=== PATIENT | male | born 1960 | race Caucasian/White ===

== ENCOUNTER 2018-04-25 17:44 | Emergency (ER) | payer SELFPAY ==
--- NOTE | 2018-04-25 19:22 | ER Document Report ---
ED Medical Screen (RME) - General Chief Complaint: Abdominal Pain Stated Complaint: ABDOMINAL PAIN Time Seen by Provider: 04/25/18 19:19 Mode of Arrival: Wheelchair Information source: Patient Notes: Patient is a 57-year-old male who presents with chief complaint of abdominal pain. Patient reports the pain is located across his entire abdomen however is worse in the right lower quadrant. Patient has associated vomiting and has had no appetite all day. Exam: Tenderness to palpation to generalized abdomen, increased to right lower quadrant. Lung sounds clear to auscultation bilaterally. I have greeted and performed a rapid initial assessment of this patient. A comprehensive ED assessment and evaluation of the patient, analysis of test results and completion of the medical decision making process will be conducted by additional ED providers. Dictation of this chart was performed using voice recognition software; therefore, there may be some unintended grammatical errors. TRAVEL OUTSIDE OF THE [place] IN LAST 30 DAYS: No - Related Data Allergies/Adverse Reactions: No Known Allergies Allergy (Verified 04/25/18 19:09) Past Medical History - Social History Chew tobacco use (# tins/day): No Frequency of alcohol use: None Drug Abuse: None Pulmonary Medical History: Reports: Hx Asthma, Hx COPD Renal/ Medical History: Denies: Hx Peritoneal Dialysis Past Surgical History: Reports: Hx Cholecystectomy Physical Exam - Vital signs Vitals: Temp Pulse Resp BP Pulse Ox 98.3 F 87 16 112/71 95 04/25/18 18:23 04/25/18 18:23 04/25/18 18:23 04/25/18 18:23 04/25/18 18:23 Course - Vital Signs Vital signs: Temp Pulse Resp BP Pulse Ox 98.3 F 87 16 112/71 95 04/25/18 18:23 04/25/18 18:23 04/25/18 18:23 04/25/18 18:23 04/25/18 18:23 Doctor's Discharge - Discharge Referrals: JIA CAMERON MD [Primary Care Provider] - Follow up as needed
[2018-04-25 20:55] LABS: ABSOLUTE BASOPHILS # (AUTO) 0.1 10^3/uL (0.0-0.2); ABSOLUTE EOSINOPHILS # (AUTO) 0.1 10^3/uL (0.0-0.6); ABSOLUTE MONOCYTES (AUTO) 0.9 10^3/uL (0.1-1.4); ABSOLUTE NEUT (AUTO) 11.4 10^3/uL (1.7-8.2); BASOPHILS % (AUTO) 0.4 % (0-2); EOSINOPHILS % (AUTO) 0.4 % (0-6); HEMATOCRIT 42.8 % (37.9-51.0); HEMOGLOBIN 15.1 g/dL (13.5-17.0); LYMPHOCYTES % (AUTO) 14.1 % (13-45); MEAN CORPUSCULAR HEMOGLOBIN 30.4 pg (27.0-33.4); MEAN CORPUSCULAR HGB CONC 35.3 g/dL (32.0-36.0); MEAN CORPUSCULAR VOLUME 86 fl (80-97); MONOCYTES % (AUTO) 6.4 % (3-13); PLATELET COUNT 130 10^3/uL (150-450); RED BLOOD COUNT 4.97 10^6/uL (4.35-5.55); RED CELL DISTRIBUTION WIDTH 14.5 % (11.5-14.0); SEGMENTED NEUTROPHILS % (AUTO) 78.7 % (42-78); TOTAL CELLS COUNTED % (AUTO) 100 %; WHITE BLOOD COUNT 14.4 10^3/uL (4.0-10.5)
[2018-04-25 21:13] LABS: APPEARANCE,URINE CLEAR; BILIRUBIN,URINE NEGATIVE (NEGATIVE); COLOR,URINE AMBER; GLUCOSE, URINE NEGATIVE (NEGATIVE); KETONES,URINE NEGATIVE (NEGATIVE); LEUKOCYTE ESTERASE,URINE NEGATIVE (NEGATIVE); NITRITE,URINE NEGATIVE (NEGATIVE); PROTEIN,URINE NEGATIVE (NEGATIVE); URINE SPECIFIC GRAVITY 1.023
[2018-04-25 21:24] LABS: ALANINE AMINOTRANSFERASE 46 U/L (21-72); ALBUMIN 4.1 g/dL (3.5-5.0); ALKALINE PHOSPHATASE 76 U/L (38-126); ANION GAP 13 (5-19); ASPARTATE AMINO TRANSFERASE 53 U/L (17-59); BILIRUBIN,DIRECT 0.8 mg/dL (0.0-0.4); BLOOD UREA NITROGEN 13 mg/dL (7-20); CALCIUM 8.9 mg/dL (8.4-10.2); CARBON DIOXIDE 27 mmol/L (22-30); CHLORIDE 102 mmol/L (98-107); GLUCOSE 89 mg/dL (75-110); LIPASE 62.5 U/L (23-300); POTASSIUM 3.6 mmol/L (3.6-5.0); SODIUM 142.2 mmol/L (137-145); TOTAL PROTEIN 7.4 g/dL (6.3-8.2)
[2018-04-25] MEDS ORDERED: MORPHINE SULFATE 10 MG/ML INJ IV ONE (23:05)
[2018-04-25] MEDS ORDERED: NORMAL SALINE 1000 ML 1,000 ML IV ONE (23:05)
[2018-04-25] MEDS ORDERED: KETOROLAC TROMETHAMINE INJ/PF 30 MG/1 ML SDV IV ONE (23:05)
--- NOTE | 2018-04-25 23:12 | ER Document Report ---
ED GI/ - General Chief Complaint: Abdominal Pain Stated Complaint: ABDOMINAL PAIN Time Seen by Provider: 04/25/18 19:19 Mode of Arrival: Wheelchair Notes: The patient is a 57-year-old male, past medical history cholecystectomy, presents with 1 day of worsening lower abdominal pain, now worse in the right lower quadrant. He is also having nausea, vomiting and a small amount of watery diarrhea. He was at the urgent care center earlier today and sent to the ER for further evaluation and treatment. Patient denies fevers, urinary symptoms, constipation, flank pain, headache or rash. TRAVEL OUTSIDE OF THE [place] IN LAST 30 DAYS: No - Related Data Allergies/Adverse Reactions: No Known Allergies Allergy (Verified 04/25/18 19:09) Past Medical History - General Information source: Patient - Social History Smoking Status: Former Smoker Chew tobacco use (# tins/day): No Frequency of alcohol use: None Drug Abuse: None Family History: Reviewed & Not Pertinent Patient has suicidal ideation: No Patient has homicidal ideation: No Pulmonary Medical History: Reports: Hx Asthma, Hx COPD Renal/ Medical History: Denies: Hx Peritoneal Dialysis Past Surgical History: Reports: Hx Cholecystectomy Review of Systems - Review of Systems Notes: REVIEW OF SYSTEMS: CONSTITUTIONAL: -fevers, -chills EENT: -eye pain, -difficulty swallowing, -nasal congestion CARDIOVASCULAR: -chest pain, -syncope. RESPIRATORY: -cough, -SOB GASTROINTESTINAL: +RLQ abdominal pain, +nausea, +vomiting, +diarrhea GENITOURINARY: -dysuria, -hematuria MUSCULOSKELETAL: -back pain, -neck pain SKIN: -rash or skin lesions. HEMATOLOGIC: -easy bruising or bleeding. LYMPHATIC: -swollen, enlarged glands. NEUROLOGICAL: -altered mental status or loss of consciousness, -headache, - neurologic symptoms PSYCHIATRIC: -anxiety, -depression. ALL OTHER SYSTEMS REVIEWED AND NEGATIVE. Physical Exam - Vital signs Vitals: Temp Pulse Resp BP Pulse Ox 98.3 F 87 16 112/71 95 04/25/18 18:23 04/25/18 18:23 04/25/18 18:23 04/25/18 18:23 04/25/18 18:23 - Notes Notes: PHYSICAL EXAMINATION: GENERAL: Mildly uncomfortable. HEAD: Atraumatic, normocephalic. EYES: Pupils equal round and reactive to light, extraocular movements intact, sclera anicteric, conjunctiva are normal. ENT: nares patent, oropharynx clear without exudates. Moist mucous membranes. NECK: Normal range of motion, supple without lymphadenopathy LUNGS: Breath sounds clear to auscultation bilaterally and equal. No wheezes rales or rhonchi. HEART: Regular rate and rhythm without murmurs ABDOMEN: Soft, moderate RLQ tenderness, normoactive bowel sounds. -guarding, - rebound. No masses appreciated. EXTREMITIES: Normal range of motion, no pitting or edema. No cyanosis. NEUROLOGICAL: Cranial nerves grossly intact. Normal speech, normal gait. Normal sensory and motor exams. PSYCH: Normal mood, normal affect. SKIN: Warm, Dry, normal turgor, no rashes or lesions noted. Course - Re-evaluation Re-evalutation: Patient with worsening right lower quadrant abdominal pain and leukocytosis. CT abdomen and pelvis obtained to assess for appendicitis, but the appendix was normal. He does have signs of diarrheal illness and enterocolitis in the distal small bowel and early colon. No risk factors for Clostridium difficile. Instructed him to continue to stay hydrated and talked about symptomatic treatment. Also spoke to him about risks and benefits for antibiotics at this time. Using shared decision making, the risks of antibiotics causing more diarrhea outweigh any benefits. He will follow-up with his GI doctor. Given strict return precautions and he understands. - Vital Signs Vital signs: Temp Pulse Resp BP Pulse Ox 98.3 F 87 16 112/71 95 04/25/18 18:23 04/25/18 18:23 04/25/18 18:23 04/25/18 18:23 04/25/18 18:23 - Laboratory Result Diagrams: 04/25/18 20:20 04/25/18 20:20 Laboratory results interpreted by me: 04/25/18 04/25/18 04/25/18 20:20 20:20 20:20 WBC 14.4 H RDW 14.5 H Plt Count 130 L Seg Neutrophils % 78.7 H Absolute Neutrophils 11.4 H Total Bilirubin 7.0 H Direct Bilirubin 0.8 H Urine Urobilinogen 4.0 H - Diagnostic Test Radiology reviewed: Image reviewed, Reports reviewed Radiology results interpreted by me: CT A/P: Air-fluid levels within the colon and distal small bowel could be secondary to a diarrheal state. Linear and bandlike opacities of the left lower lung may represent scar versus subsegmental atelectasis. Discharge - Discharge Clinical Impression: Colitis Abdominal pain Qualifiers: Abdominal location: right lower quadrant Qualified Code(s): R10.31 - Right lower quadrant pain Condition: Stable Disposition: HOME, SELF-CARE Additional Instructions: ABDOMINAL PAIN: There are many causes of abdominal pain. Pain can mean a serious problem requiring surgery (such as appendicitis). It can also be an innocent problem that goes away on its own (such as a viral infection). Often, time must pass to determine the cause of pain. The physician does not feel that hospitalization is necessary, at present. Things may change within the next 24 hours. Call the doctor or come back for re- examination if any problems occur, such as: (1) Pain that becomes more severe, steady, or becomes concentrated in one specific area. Also, pain that is more severe with movement or coughing. (2) Vomiting that persists or becomes more frequent. (3) Blood in the vomitus, urine, or bowel movements. Blood in the stool may have a tarry or black appearance. (4) Shaking chills or fever greater than 100 degrees F. (5) The abdomen becomes more distended or swollen. (6) Bowel movements cease. (7) Failure to improve as expected. COLITIS, NONSPECIFIC: Colitis is an inflammatory disease of the large intestine which affects the lining of the bowel. The cause is uncertain, though it is often caused by an infection. In some cases, the symptoms resolve and can return again in the future. Colitis is characterized by abdominal pain, often nausea and vomiting, and either diarrhea or difficulty with bowel movements. Sometimes blood will be present in the bowel movements. Fever is often present as well. Milder cases of colitis can be managed as an outpatient with medications for nausea and vomiting and pain, oral fluid therapy, and perhaps antibiotics, if a bacterial origin is suspected. Antidiarrhea medicine should usually be avoided in colitis. If you have increasing abdominal pain, repeated vomiting, fever, rectal bleeding, or worsening diarrhea, you should return for re-evaluation. TORADOL INJECTION: You have been given an injection of ketorolac tromethamine (Toradol). This is an excellent, safe drug for pain control. It also has potent antiinflammatory action. You should have significant pain relief within about one hour. Toradol is not addicting and is non-sedating. It does not interfere with driving or work. Call or return if you develop itching, hives, shortness of breath, or rash. PAIN MEDICATION INJECTION: You have received an injection of a pain medication. You should experience significant pain relief within 45 minutes. This drug is a narcotic - - it will impair your judgement, slow your reaction time and make you sleepy ( as well as relieve your pain). Narcotics also can cause nausea. You should not drive, work with machinery, or perform any task requiring mental alertness until all effects of the medication are gone -- six to eight hours. Do not take any alcohol, or sedatives, and do not take any other medication without checking with your physician. ANTINAUSEA MEDICATION: You have been given a medication to suppress nausea and vomiting. This type of medication can be given as a shot, pill, or suppository. It will usually last for many hours. Pills and shots usually last six to eight hours, suppositories last about 12 hours. For the typical illness, only one or two doses of the medication may be necessary. Mild lightheadedness may occur. This type of medicine can cause drowsiness. Do not drive or operate dangerous machinery while under its influence. Do not mix with alcohol. See your doctor at once if you have muscle spasms or tightness, or uncontrollable motions (particularly of the neck, mouth, or jaw). Persistent vomiting or severe lightheadedness should also be evaluated by the physician. FOLLOW-UP CARE: If you have been referred to a physician for follow-up care, call the physician s office for an appointment as you were instructed or within the next two days. If you experience worsening or a significant change in your symptoms, notify the physician immediately or return to the Emergency Department at any time for re-evaluation. Prescriptions: Dicyclomine HCl [Bentyl 10 mg Capsule] 1 cap PO TID #14 cap Ondansetron HCl [Zofran 4 mg Tablet] 1 - 2 tab PO Q4H PRN #10 tablet PRN Reason: Referrals: JIA CAMERON MD [Primary Care Provider] - Follow up as needed FARA MARROQUIN MD [ACTIVE STAFF] - Follow up as needed
--- NOTE | 2018-04-26 00:30 | RADIOLOGY REPORT (SQ) ---
EXAM DESCRIPTION: CT abdomen and pelvis with intravenous contrast, April 25, 2018 at 11:57 PM CLINICAL HISTORY: RLQ tenderness COMPARISON: January 09, 2016 TECHNIQUE: Contiguous axial images of the abdomen and pelvis were obtained after the administration of intravenous contrast followed by reconstruction images.This exam was performed according to our departmental dose-optimization program, which includes automated exposure control, adjustment of the mA and/or kV according to patient size and/or use of iterative reconstruction technique. FINDINGS: Linear and bandlike opacities within the lungs may represent scar versus subsegmental atelectasis. There is a hiatal hernia. The liver is of decreased attenuation compatible with fatty infiltration. Patient is status post cholecystectomy. Air-fluid levels within the colon and distal small bowel could be secondary to a diarrheal state. The liver, spleen, pancreas and kidneys are otherwise within normal limits. There is no hydronephrosis or renal stones. Adrenal glands are within normal limits. Aorta is of normal caliber and tapering. There is no free fluid in the abdomen or pelvis. There is no bowel obstruction. There is no stranding of the mesenteric fat to suggest an inflammatory response. The appendix is within normal limits. There is no pericecal inflammation. IMPRESSION: Air-fluid levels within the colon and distal small bowel could be secondary to a diarrheal state. Linear and bandlike opacities of the left lower lung may represent scar versus subsegmental atelectasis.
[2018-04-26] MEDS ORDERED: ONDANSETRON ODT 4 MG TAB (6 TAB/ER DISP) PO PRN (00:56)
[2018-04-26 01:06] VITALS: BP 103/56
== END 2018-04-26 01:23 | disposition home or self-care (01) ==
LOC: ER 17:44
DX: K52.9 Noninfective gastroenteritis and colitis, unspecified (principal); R10.31 Right lower quadrant pain; D72.829 Elevated white blood cell count, unspecified; R11.2 Nausea with vomiting, unspecified; J44.9 Chronic obstructive pulmonary disease, unspecified; Z87.891 Personal history of nicotine dependence
CPT/HCPCS: 99284; 96361; 96374; 96375; 36415; 83690; 85025; 80053; 81001; 74177; J1885; J2270; J7030

== ENCOUNTER 2018-05-17 21:06 | Emergency (ER) | payer OTHER ==
[~2018-05-17 21:06] MED LIST: ENOXAPARIN SODIUM INJ 80 MG/0.8 ML DISP.SYRIN SUBCUT ONE
[2018-05-17] MEDS ORDERED: ENOXAPARIN SODIUM INJ 80 MG/0.8 ML DISP.SYRIN SUBCUT SCH (23:45)
[2018-05-17] MEDS ORDERED: HYDROCODONE/ACETAMINOPHEN 5-325 MG (6 TAB/ER DISP) PO PRN (23:51)
--- NOTE | 2018-05-17 23:51 | ER Document Report ---
ED General - General Chief Complaint: Knee Pain Stated Complaint: KNEE/LEG PAIN Time Seen by Provider: 05/17/18 22:56 Mode of Arrival: Ambulatory Information source: Patient Notes: Patient is a 57-year-old male who presents with posterior left leg pain. Patient reports this is been going on for approximately 3 weeks. Patient reports he was seen at orthopedics approximately 2 weeks ago, was diagnosed and treated for gout but patient reports the medications he was put on did not change his symptoms at all. Patient reports the pain is located on the back of his leg from his calf to the back of his knee. Patient reports there is associated swelling and erythema. Patient denies any fevers, nausea or vomiting. Patient reporting that he has a history of having DVTs in the past and has had vein stripping done in this leg. Patient is not currently on any anticoagulants. TRAVEL OUTSIDE OF THE [place] IN LAST 30 DAYS: No - Related Data Allergies/Adverse Reactions: No Known Allergies Allergy (Verified 04/25/18 19:09) Past Medical History - Social History Smoking Status: Former Smoker Family History: Reviewed & Not Pertinent Patient has suicidal ideation: No Patient has homicidal ideation: No Pulmonary Medical History: Reports: Hx Asthma, Hx COPD Renal/ Medical History: Denies: Hx Peritoneal Dialysis Past Surgical History: Reports: Hx Cholecystectomy Physical Exam - Vital signs Vitals: Temp Pulse Resp BP Pulse Ox 98 F 52 L 14 112/68 97 05/18/18 01:00 05/18/18 01:00 05/18/18 01:00 05/18/18 01:00 05/18/18 01:00 - Notes Notes: PHYSICAL EXAMINATION: GENERAL: Well-appearing, well-nourished and in no acute distress. HEAD: Atraumatic, normocephalic. EYES: Pupils equal round and reactive to light, extraocular movements intact, sclera anicteric, conjunctiva are normal. ENT: Nares patent, oropharynx clear without exudates. Moist mucous membranes. NECK: Normal range of motion, supple without lymphadenopathy LUNGS: Breath sounds clear to auscultation bilaterally and equal. No wheezes rales or rhonchi. HEART: Regular rate and rhythm without murmurs ABDOMEN: Soft, nontender, nondistended abdomen. No guarding, no rebound. No masses appreciated. Musculoskeletal: Normal range of motion, no pitting or edema. No cyanosis. Swelling and erythema noted to left lower extremity. Dorsalis pedis pulses are present and equal bilaterally. NEUROLOGICAL: Cranial nerves grossly intact. Normal speech, normal gait. Normal sensory, motor exams PSYCH: Normal mood, normal affect. SKIN: Warm, Dry, normal turgor, no rashes or lesions noted. Course - Re-evaluation Re-evalutation: Patient's left lower extremity with swelling and erythema, this is been ongoing for 3 weeks. Patient does have a history of DVT. Patient's description of his pain is to the posterior leg from his calf to his popliteal area. Patient describes this as a achy pain. There is reasonable suspicion that this could be a DVT and therefore patient will be sent for an outpatient venous Doppler in the morning as we do not have venous Doppler available at this hour. Patient will be treated with Lovenox 1 mg/kg subcutaneously. Patient understands and is agreeable to this plan of care. Patient also understands ED return precautions as outlined in his discharge papers. - Vital Signs Vital signs: Temp Pulse Resp BP Pulse Ox 98 F 52 L 14 112/68 97 05/18/18 01:00 05/18/18 01:00 05/18/18 01:00 05/18/18 01:00 05/18/18 01:00 Discharge - Discharge Clinical Impression: Leg pain, anterior Qualifiers: Laterality: left Qualified Code(s): M79.605 - Pain in left leg Condition: Stable Disposition: HOME, SELF-CARE Additional Instructions: DVT Workup Pending Deep venous thrombosis (DVT) is clots within the large deep veins in the leg. It can be serious. DVT is more likely to affect people who smoke, take estrogen, have had recent surgery, have been immobile, have had previous DVT, or who have serious underlying health conditions. You will need a study of the veins of the legs. It's important that you follow through. DVT clots can damage the valves in the veins, leading to chronic pain and swelling. If a clot breaks loose and floats upstream, it can stick in the lungs. A clot in the lungs, called pulmonary embolism, can be life- threatening. Keep your legs elevated. A heating pad, 20 minutes every two hours, can help with leg pain. For now, keep walking to a minimum. Don't do any physical work, lifting, or exercise. If the doctor has recommended medication for you, it 's important that you take it. Call the doctor or return if you develop increasing leg pain and swelling, leg discoloration, fever, chest pain, shortness of breath, or if you cough up blood. You have been given a first dose of Lovenox here in the emergency department tonight. Please proceed to outpatient radiology tomorrow, call for an appointment to have your venous Doppler study done to evaluate for a deep vein thrombosis/blood clot in your left lower extremity. Take the pain medications as directed, do not drive while taking them as they are a narcotic. Please return to the emergency department immediately if you develop worsening pain, chest pain, shortness of breath or any other symptom that is concerning to you. Forms: Follow-Up Radiology Testing Referrals: [facility] [Provider Group] - Follow up as needed
[2018-05-18] MEDS ORDERED: POTASSIUM CHLORIDE 20 MEQ/15 ML UDCUP PEG ONE (00:15)
[2018-05-18] MEDS ORDERED: ENOXAPARIN SODIUM INJ 80 MG/0.8 ML DISP.SYRIN SUBCUT ONE (00:23)
[2018-05-18] MEDS ORDERED: POTASSIUM CHLORIDE 20 MEQ/50 ML RTU IV SCH (01:00)
[2018-05-18 01:02] VITALS: BP 112/68
== END 2018-05-18 01:00 | disposition home or self-care (01) ==
LOC: ER 21:06
DX: M79.662 Pain in left lower leg (principal); M25.562 Pain in left knee; M79.89 Other specified soft tissue disorders; L53.9 Erythematous condition, unspecified; J44.9 Chronic obstructive pulmonary disease, unspecified; Z86.718 Personal history of other venous thrombosis and embolism; Z87.891 Personal history of nicotine dependence
CPT/HCPCS: 99283; 96372; J1650

== ENCOUNTER → 2018-05-18 | Outpatient (CLI) | payer OTHER ==
--- NOTE | 2018-05-18 15:49 | RADIOLOGY REPORT (SQ) ---
EXAM DESCRIPTION: VENOUS UNILATERAL LOWER COMPLETED DATE/TIME: 05/18/2018 2:38 pm REASON FOR STUDY: LLE PAIN COMPARISON: None. TECHNIQUE: Dynamic and static luke scale and color images acquired of the left leg venous system. Se lected spectral images acquired with additional compression and augmentation maneuvers. The contralat eral common femoral vein and saphenofemoral junction were also imaged. Images stored on PACS. LIMITATIONS: None. FINDINGS: COMMON FEMORAL: Normal phasicity, compression and augmentation. No visualized echogenic ma terial on luke scale. No defects on color images. FEMORAL: Normal compression and augmentation. No visualized echogenic material on luke scale. No defe cts on color images. POPLITEAL: Normal compression, augmentation. No visualized echogenic material on luke scale. No defec ts on color images. CALF VESSELS: Normal compression, augmentation. No visualized echogenic material on luke scale. No de fects on color images. GSV and SSV: Normal compression, augmentation. No visualized echogenic material on luke scale. No def ects on color images. ANY DEEP VENOUS INSUFFICIENCY: Not evaluated. ANY EVIDENCE OF POPLITEAL CYST: No. OTHER: No other significant finding. CONTRALATERAL COMMON FEMORAL VEIN AND SAPHENOFEMORAL JUNCTION: Normal phasicity, compression and augmentation. No visualized echogenic material on luke scale. No de fects on color images. IMPRESSION: NO EVIDENCE DVT OR SVT IN THE LEFT LEG. TECHNICAL DOCUMENTATION: JOB ID: [id number] [employer]- All Rights Reserved Reading location - IP/workstation name: [email or web address]
== END ==
LOC: RAD 12:36
PROVIDERS: ATTEND Student in an Organized Health Care Education/Training Program
DX: M79.662 Pain in left lower leg (principal)
CPT/HCPCS: 93971

== ENCOUNTER 2018-05-20 04:08 | Inpatient (IN) | payer OTHER ==
[2018-05-20] MEDS ORDERED: ACETAMINOPHEN 325 MG TABLET PO ONE (04:34)
[2018-05-20] MEDS ORDERED: NORMAL SALINE 1000 ML 1,000 ML IV ONE (04:50)
--- NOTE | 2018-05-20 04:53 | ER Document Report ---
ED General - General Chief Complaint: Productive Cough Stated Complaint: FEVER Time Seen by Provider: 05/20/18 04:25 Notes: Patient is a 57-year-old male who comes in with a fever. Patient began having shaking chills last night. He has had a slight cough. Was seen over the last 2 weeks once for abdominal pain and also for left leg and knee pain. Patient had a recent venous Doppler that did not show any evidence for DVT. He states that he was vomiting but he has not really had abdominal pain today. Denies any dysuria. Patient has a history of COPD. Denies any coronary artery disease or chest pain. No recent trauma. TRAVEL OUTSIDE OF THE [place] IN LAST 30 DAYS: No - HPI Onset: This evening Onset/Duration: Sudden Quality of pain: No pain Associated symptoms: Fever Exacerbated by: Denies Relieved by: Denies Recently seen / treated by doctor: Yes - Related Data Allergies/Adverse Reactions: No Known Allergies Allergy (Verified 04/25/18 19:09) Past Medical History - General Information source: Patient, Relative - Social History Smoking Status: Former Smoker Drug Abuse: None Lives with: Spouse/Significant other Family History: Reviewed & Not Pertinent Pulmonary Medical History: Reports: Hx Asthma, Hx COPD Renal/ Medical History: Denies: Hx Peritoneal Dialysis Past Surgical History: Reports: Hx Cholecystectomy Review of Systems - Review of Systems Constitutional: Fever EENT: No symptoms reported Cardiovascular: No symptoms reported Respiratory: Cough Gastrointestinal: Vomiting Genitourinary: No symptoms reported Male Genitourinary: No symptoms reported Musculoskeletal: Other - leg pain Skin: No symptoms reported Hematologic/Lymphatic: No symptoms reported Neurological/Psychological: No symptoms reported Physical Exam - Vital signs Vitals: Resp Pulse Ox 19 96 05/20/18 04:37 05/20/18 04:37 Interpretation: Tachycardic, Tachypneic, Febrile - General General appearance: Alert In distress: Moderate - Respiratory Respiratory status: Tachypnea Breath sounds: Decreased air movement - bases - Cardiovascular Rhythm: Regular, Tachycardia - Abdominal Inspection: Normal - Back Back: Normal - Extremities General upper extremity: Normal inspection, Normal strength General lower extremity: Normal inspection, Tender - L medial lower leg, excellent pulses t/o, Normal color, Normal ROM, Normal strength, Normal temperature. No: Edema - Neurological Neuro grossly intact: Yes Cognition: Normal Orientation: AAOx4 Amado Coma Scale Eye Opening: Spontaneous [place] Coma Scale Verbal: Oriented Speech: Normal - Psychological Associated symptoms: Normal affect, Normal mood - Skin Skin Temperature: Hot Skin Moisture: Dry Skin Color: Normal Course - Re-evaluation Re-evalutation: 05/20/18 06:02 Patient is a 57-year-old male who comes in with shaking chills, fever, tachycardia, and cough. Patient has a oxygen saturation of 92% at rest which drops when he gets up to try to walk around. He is improved since his fever is down and he has been fluid resuscitated. Chest x-ray showing pneumonia. Given the patient's symptoms and presentation will be kept for admission. Patient is agreeable to this. He is still complaining of left leg pain. Of note, recent venous Dopplers were negative. He has excellent pulses and no evidence for cellulitis. He has full range of motion and strength is intact throughout. - Vital Signs Vital signs: Temp Pulse Resp BP Pulse Ox 38 H 126/74 H 93 05/20/18 05:00 05/20/18 04:38 05/20/18 05:00 - Laboratory Result Diagrams: 05/20/18 04:36 05/20/18 04:36 Laboratory results interpreted by me: 05/20/18 05/20/18 05/20/18 04:36 04:36 04:36 RDW 14.1 H Plt Count 111 L Seg Neutrophils % 86.2 H Lymphocytes % 7.8 L Potassium 3.4 L Glucose 113 H Total Bilirubin 4.3 H Direct Bilirubin 0.7 H Urine Blood SMALL H Urine Urobilinogen 4.0 H Critical Care Note - Critical Care Note Total time excluding time spent on procedures (mins): 45 - Evaluation and management of sepsis, hypoxia, diagnoses or pneumonia, coordination of admission , counseling of patient family Discharge - Discharge Clinical Impression: SIRS (systemic inflammatory response syndrome), Leg pain, left Pneumonia Qualifiers: Pneumonia type: due to unspecified organism Laterality: left Lung location: lower lobe of lung Qualified Code(s): J18.1 - Lobar pneumonia, unspecified organism Condition: Stable Disposition: ADMITTED INPATIENT [facility] Admitted: Telemetry Scribe Attestation: 05/20/18 06:04 I personally performed the services described in the documentation, reviewed and edited the documentation which was dictated to the scribe in my presence, and it accurately records my words and actions.
[2018-05-20 05:07] LABS: ABSOLUTE EOSINOPHILS # (AUTO) 0.1 10^3/uL (0.0-0.6); ABSOLUTE LYMPHOCYTES (AUTO) 0.6 10^3/uL (0.5-4.7); ABSOLUTE MONOCYTES (AUTO) 0.4 10^3/uL (0.1-1.4); ABSOLUTE NEUT (AUTO) 6.5 10^3/uL (1.7-8.2); BASOPHILS % (AUTO) 0.2 % (0-2); HEMATOCRIT 42.7 % (37.9-51.0); HEMOGLOBIN 15.2 g/dL (13.5-17.0); LYMPHOCYTES % (AUTO) 7.8 % (13-45); MEAN CORPUSCULAR HEMOGLOBIN 30.4 pg (27.0-33.4); MEAN CORPUSCULAR HGB CONC 35.6 g/dL (32.0-36.0); MEAN CORPUSCULAR VOLUME 86 fl (80-97); MONOCYTES % (AUTO) 4.8 % (3-13); PLATELET COUNT 111 10^3/uL (150-450); RED CELL DISTRIBUTION WIDTH 14.1 % (11.5-14.0); SEGMENTED NEUTROPHILS % (AUTO) 86.2 % (42-78); TOTAL CELLS COUNTED % (AUTO) 100 %; WHITE BLOOD COUNT 7.5 10^3/uL (4.0-10.5)
[2018-05-20 05:08] LABS: VENOUS BLOOD BASE EXCESS -0.8 mmol/L; VENOUS BLOOD PCO2 45.6 mmHg (35-63); VENOUS BLOOD PH 7.36 (7.30-7.42)
[2018-05-20 05:10] LABS: INTERNATIONAL RATION (INR) 0.99; PROTHROMBIN TIME 13.6 SEC (11.4-15.4)
--- NOTE | 2018-05-20 05:16 | RADIOLOGY REPORT (SQ) ---
EXAM DESCRIPTION: XR CHEST 1 VIEW COMPLETED DATE/TME: 05/20/2018 04:24 CLINICAL HISTORY: 57 years Male, fever COMPARISON: CT ABD/PELVIS COMBO 01/09/2016 NUMBER OF VIEWS/TECHNIQUE: 1/AP FINDINGS: Increased lung volume, small lingular patchy opacity, normal cardiac silhouette, and intact bony thorax. IMPRESSION: Small lingular pneumonia/atelectasis.
[2018-05-20 05:25] LABS: APPEARANCE,URINE CLEAR; BILIRUBIN,URINE NEGATIVE (NEGATIVE); COLOR,URINE YELLOW; GLUCOSE, URINE NEGATIVE (NEGATIVE); KETONES,URINE NEGATIVE (NEGATIVE); LEUKOCYTE ESTERASE,URINE NEGATIVE (NEGATIVE); NITRITE,URINE NEGATIVE (NEGATIVE); PROTEIN,URINE NEGATIVE (NEGATIVE); URINE SPECIFIC GRAVITY 1.017
[2018-05-20 05:30] LABS: ALANINE AMINOTRANSFERASE 36 U/L (21-72); ALBUMIN 3.8 g/dL (3.5-5.0); ALKALINE PHOSPHATASE 76 U/L (38-126); ANION GAP 13 (5-19); ASPARTATE AMINO TRANSFERASE 35 U/L (17-59); BILIRUBIN,DIRECT 0.7 mg/dL (0.0-0.4); BILIRUBIN,TOTAL 4.3 mg/dL (0.2-1.3); BLOOD UREA NITROGEN 8 mg/dL (7-20); CALCIUM 8.9 mg/dL (8.4-10.2); CARBON DIOXIDE 27 mmol/L (22-30); CHLORIDE 104 mmol/L (98-107); GLUCOSE 113 mg/dL (75-110); POTASSIUM 3.4 mmol/L (3.6-5.0)
[2018-05-20] MEDS ORDERED: CEFTRIAXONE 1 GM/D5W RTU 1 GM/50 ML RTUPB IV ONE (05:41)
[2018-05-20] MEDS ORDERED: CEFTRIAXONE INJ 1000 MG VIAL ONE (05:49)
[2018-05-20] MEDS ORDERED: AZITHROMYCIN INJ 500 MG VIAL IV ONE (06:00)
[2018-05-20] MEDS ORDERED: IPRATROPIUM/ALBUTEROL 0.5-2.5 MG/3 ML AMPUL NEB PRN (06:03)
[2018-05-20] MEDS ORDERED: LACTULOSE SYRUP 20 GM/30 ML UDCUP PO ONE (06:03)
[2018-05-20] MEDS ORDERED: ACETAMINOPHEN 325 MG TABLET PO PRN (06:03)
[2018-05-20] MEDS ORDERED: HYDRALAZINE HCL INJ/PF 20 MG/1 ML SDV IV PRN (06:03)
[2018-05-20] MEDS ORDERED: GUAIFENESIN SYRP 200 MG/10 ML UDC PO PRN (06:03)
--- NOTE | 2018-05-20 06:29 | PDOC H&P ---
History of Present Illness Admission Date/PCP: 05/20/18 06:03 JASON GUERIN DO Patient complains of: Shortness of breath and fever History of Present Illness: ISHAN BAILEY is a 57 year old male with a past medical history of Gilbert's, COPD and constipation predominant irritable bowel syndrome who presents with 24 hours of fever, shortness of breath and nonproductive cough. Denying rhinorrhea , sore throat, infectious contacts but admits uncontrolled GERD. In the emergency room he has an extensive workup and found to have fever of 102.7, infiltrate of the left lower lobe and constipation. He started on empiric antibiotics and for the hospitalist for admission. Patient denies recent antibiotic use. Past Medical History Pulmonary Medical History: Reports: Asthma, Chronic Obstructive Pulmonary Disease (COPD) GI Medical History: Reports: Other - Gilbert's Psychiatric Medical History: Denies: Alcohol Dependency, Tobacco Dependency Past Surgical History Past Surgical History: Reports: Cholecystectomy Social History Information Source: Patient Lives with: Spouse/Significant other Smoking Status: Former Smoker Frequency of Alcohol Use: None Drugs: None - Advance Directive Resuscitation Status: Full Code Family History Family History: Other - Lymphoma, breast cancer and hepatic cirrhosis Parental Family History Reviewed: Yes Children Family History Reviewed: Yes Sibling(s) Family History Reviewed.: Yes Medication/Allergy Home Medications: Amox Tr/Potassium Clavulanate [Augmentin 875-125 mg Tablet] 1 tab PO BID #20 tablet 05/16/14 Ondansetron [Zofran Odt 4 mg Tablet] 1 - 2 tab PO Q4HP PRN #10 tab.rapdis Dicyclomine HCl [Bentyl 10 mg Capsule] 1 cap PO TID #14 cap 04/26/18 Ondansetron HCl [Zofran 4 mg Tablet] 1 - 2 tab PO Q4H PRN #10 tablet 04/26/18 Allergies/Adverse Reactions: No Known Allergies Allergy (Verified 04/25/18 19:09) Review of Systems Constitutional: ABSENT: chills, fever(s), headache(s), weight gain, weight loss Eyes: ABSENT: visual disturbances Ears: ABSENT: hearing changes Cardiovascular: ABSENT: chest pain, dyspnea on exertion, edema, orthropnea, palpitations Respiratory: ABSENT: cough, hemoptysis Gastrointestinal: ABSENT: abdominal pain, constipation, diarrhea, hematemesis, hematochezia, nausea, vomiting Genitourinary: ABSENT: dysuria, hematuria Musculoskeletal: ABSENT: joint swelling Integumentary: ABSENT: rash, wounds Neurological: ABSENT: abnormal gait, abnormal speech, confusion, dizziness, focal weakness, syncope Psychiatric: ABSENT: anxiety, depression, homidical ideation, suicidal ideation Endocrine: ABSENT: cold intolerance, heat intolerance, polydipsia, polyuria Hematologic/Lymphatic: ABSENT: easy bleeding, easy bruising Physical Exam Vital Signs: Temp Pulse Resp BP Pulse Ox 38 H 126/74 H 93 05/20/18 05:00 05/20/18 04:38 05/20/18 05:00 Intake & Output 05/18/18 05/19/18 05/20/18 11:59 11:59 11:59 Intake Total 1000 Balance 1000 General appearance: PRESENT: cooperative, disheveled, mild distress. ABSENT: no acute distress, hard of hearing Head exam: PRESENT: atraumatic, normocephalic Eye exam: PRESENT: conjunctiva pink, EOMI, PERRLA. ABSENT: scleral icterus Ear exam: PRESENT: normal external ear exam Mouth exam: PRESENT: moist, tongue midline Neck exam: ABSENT: carotid bruit, JVD, lymphadenopathy, thyromegaly Respiratory exam: PRESENT: accessory muscle use, crackles, prolonged expiratory phas, rales, symmetrical, tachypnea. ABSENT: chest wall tenderness, clear to auscultation francisca Cardiovascular exam: PRESENT: tachycardia. ABSENT: diastolic murmur, rubs, systolic murmur Pulses: PRESENT: normal dorsalis pedis pul Vascular exam: PRESENT: normal capillary refill GI/Abdominal exam: PRESENT: distended, hypoactive bowel sounds, soft, tenderness. ABSENT: firm, guarding, mass Rectal exam: PRESENT: deferred Extremities exam: PRESENT: full ROM. ABSENT: calf tenderness, clubbing, pedal edema Neurological exam: PRESENT: alert, awake, oriented to person, oriented to place , oriented to time, oriented to situation, CN II-XII grossly intact. ABSENT: motor sensory deficit Psychiatric exam: PRESENT: anxious Skin exam: PRESENT: dry, intact, warm. ABSENT: cyanosis, rash Results Impressions: Chest X-Ray 05/20/18 04:24 IMPRESSION: Small lingular pneumonia/atelectasis. Assessment & Plan - Diagnosis (1) Pneumonia Qualifiers: Pneumonia type: due to unspecified organism Laterality: left Lung location: lower lobe of lung Qualified Code(s): J18.1 - Lobar pneumonia, unspecified organism Is this a current diagnosis for this admission?: Yes Plan: Pneumonia care set, incentive spirometry follow-up CBC and blood culture (2) COPD exacerbation Is this a current diagnosis for this admission?: Yes Plan: Flutter valve, albuterol and Atrovent (3) [place] disease Is this a current diagnosis for this admission?: Yes Plan: Benign elevation of bilirubin noted (4) Irritable bowel syndrome with constipation Is this a current diagnosis for this admission?: Yes Plan: Trial lactulose (5) SIRS (systemic inflammatory response syndrome) Is this a current diagnosis for this admission?: Yes Plan: Secondary to #1, supportive care IV fluid challenge, follow-up CBC and blood culture - Time Time Spent: 50 to 70 Minutes - Inpatient Certification Medical Necessity: Need Close Monitoring Due to Risk of Patient Decompensation
[2018-05-20] MEDS ORDERED: FLUTICASONE NASAL SPRAY 50 MCG/SPRY 120 SPRAY/16 GM NASL ONE (06:30)
[2018-05-20] MEDS: KETOROLAC TROMETHAMINE INJ/PF 30 MG/1 ML SDV IV PRN ×3 (06:37→22:10)
[2018-05-20] MEDS: NORMAL SALINE 1000 ML 1,000 ML IV PRN ×3 (06:39→21:16)
[2018-05-20] MEDS: POTASSI CL 20 MEQ/50 ML RIDER 20 MEQ/50 ML RTUPB IV SCH ×2 (06:42→08:50)
--- NOTE | 2018-05-20 06:42 | RADIOLOGY REPORT (SQ) ---
EXAM DESCRIPTION: CT ABDOMEN PELVIS WITH IV CONTRAST, CT CHEST ANGIOGRAPHY WITHOUT THEN WITH IV CONTRAST COMPLETED DATE/TME: 05/20/2018 05:05 (accession [id number]), 05/20/2018 05:04 (accession [id number]) CLINICAL HISTORY: 57 years Male, abd pain, vomiting, fever Comparison: CT ABD/PELVIS 01/09/2016 Technique: IV contrast. Coronal and sagittal reformat. 3d reconstruction. This exam was performed according to our departmental dose-optimization program, which includes automated exposure control, adjustment of the mA and/or kV according to patient size and/or use of iterative reconstruction technique. [facility]: Dose Right [facility]: CareDose [facility]: Dose Right [facility]: Teradose 4D [facility]: [employer] LIMITATIONS: Quality of pulmonary arteriogram: Suboptimal. Findings: Innumerable subsolid pulmonary edema nodules include a 0.7 cm lesion on image 63 of series 3 and 0.6 cm lesion of the right upper lobe, image 35 of series 3. Differential etiologies include infectious/atypical pneumonitis, inflammatory, and metastatic/neoplastic processes. Recommend CR/CT surveillance including at 7-12 weeks following initiation of clinically warranted therapy. Splenomegaly index of 1281. 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 No evidence of pulmonary embolus. No right ventricular strain. CTA of the aorta, great vessels of the mediastinum, mesenteric/renal arteries appears unremarkable. Moderate hiatal hernia cholecystectomy clips, normal appendix. Inferior neck, axillae, mediastinum, lungs, airway, heart, liver, pancreas, spleen, adrenals, renal system, gastrointestinal tract, pelvic organs, lymphatics, and musculoskeleton appear otherwise unremarkable. Impression: 1. Innumerable subsolid pulmonary edema nodules include a 0.7 cm lesion on image 63 of series 3 and 0.6 cm lesion of the right upper lobe, image 35 of series 3. Differential etiologies include infectious/atypical pneumonitis, inflammatory, and metastatic/neoplastic processes. Recommend CR/CT surveillance including at 7-12 weeks following initiation of clinically warranted therapy. 2. Splenomegaly index of 1281. 3. 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
--- NOTE | 2018-05-20 06:42 | RADIOLOGY REPORT (SQ) ---
EXAM DESCRIPTION: CT ABDOMEN PELVIS WITH IV CONTRAST, CT CHEST ANGIOGRAPHY WITHOUT THEN WITH IV CONTRAST COMPLETED DATE/TME: 05/20/2018 05:05 (accession [id number]), 05/20/2018 05:04 (accession [id number]) CLINICAL HISTORY: 57 years Male, abd pain, vomiting, fever Comparison: CT ABD/PELVIS 01/09/2016 Technique: IV contrast. Coronal and sagittal reformat. 3d reconstruction. This exam was performed according to our departmental dose-optimization program, which includes automated exposure control, adjustment of the mA and/or kV according to patient size and/or use of iterative reconstruction technique. [facility]: Dose Right [facility]: CareDose [facility]: Dose Right [facility]: Teradose 4D [facility]: [employer] LIMITATIONS: Quality of pulmonary arteriogram: Suboptimal. Findings: Innumerable subsolid pulmonary edema nodules include a 0.7 cm lesion on image 63 of series 3 and 0.6 cm lesion of the right upper lobe, image 35 of series 3. Differential etiologies include infectious/atypical pneumonitis, inflammatory, and metastatic/neoplastic processes. Recommend CR/CT surveillance including at 7-12 weeks following initiation of clinically warranted therapy. Splenomegaly index of 1281. 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 No evidence of pulmonary embolus. No right ventricular strain. CTA of the aorta, great vessels of the mediastinum, mesenteric/renal arteries appears unremarkable. Moderate hiatal hernia cholecystectomy clips, normal appendix. Inferior neck, axillae, mediastinum, lungs, airway, heart, liver, pancreas, spleen, adrenals, renal system, gastrointestinal tract, pelvic organs, lymphatics, and musculoskeleton appear otherwise unremarkable. Impression: 1. Innumerable subsolid pulmonary edema nodules include a 0.7 cm lesion on image 63 of series 3 and 0.6 cm lesion of the right upper lobe, image 35 of series 3. Differential etiologies include infectious/atypical pneumonitis, inflammatory, and metastatic/neoplastic processes. Recommend CR/CT surveillance including at 7-12 weeks following initiation of clinically warranted therapy. 2. Splenomegaly index of 1281. 3. 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
--- NOTE | 2018-05-20 07:18 | EKG REPORT ---
SEVERITY:- BORDERLINE ECG - SINUS TACHYCARDIA PROBABLE LEFT ATRIAL ABNORMALITY : Confirmed by: Michi Vaughn MD 20-May-2018 07:17:41
[2018-05-20] MEDS: IPRATROPIUM/ALBUTEROL 0.5-2.5 MG/3 ML AMPUL NEB SCH ×3 (08:26→20:23)
[2018-05-20] MEDS: HEPARIN SOD (PORCINE) 5,000 UNIT/ML 1 ML SYRINGE SUBCUT SCH ×2 (15:25→22:03)
--- NOTE | 2018-05-20 15:37 | Progress Note ---
Provider Note Provider Note: This is 57 years old male patient presented with chief complaint of shortness of breath, cough, fever of 1 day duration's. Patient has underlying COPD. He has been on supplemental oxygen, bronchodilators, antibiotic and Solu-Medrol. Accept this patient and I will be his primary attending.
[2018-05-20] MEDS: FLUTICASONE NASAL SPRAY 50 MCG/SPRY 120 SPRAY/16 GM NASL SCH (22:12)
[2018-05-21] MEDS: IPRATROPIUM/ALBUTEROL 0.5-2.5 MG/3 ML AMPUL NEB SCH ×4 (02:30→20:18)
[2018-05-21] MEDS: HEPARIN SOD (PORCINE) 5,000 UNIT/ML 1 ML SYRINGE SUBCUT SCH ×3 (05:45→21:30)
[2018-05-21] MEDS: KETOROLAC TROMETHAMINE INJ/PF 30 MG/1 ML SDV IV PRN ×3 (05:47→19:47)
[2018-05-21 05:50] LABS: ABSOLUTE EOSINOPHILS # (AUTO) 0.1 10^3/uL (0.0-0.6); ABSOLUTE LYMPHOCYTES (AUTO) 0.8 10^3/uL (0.5-4.7); ABSOLUTE MONOCYTES (AUTO) 0.3 10^3/uL (0.1-1.4); ABSOLUTE NEUT (AUTO) 3.9 10^3/uL (1.7-8.2); BASOPHILS % (AUTO) 0.5 % (0-2); EOSINOPHILS % (AUTO) 2.8 % (0-6); HEMATOCRIT 32.3 % (37.9-51.0); LYMPHOCYTES % (AUTO) 15.2 % (13-45); MEAN CORPUSCULAR HEMOGLOBIN 30.9 pg (27.0-33.4); MEAN CORPUSCULAR HGB CONC 35.6 g/dL (32.0-36.0); MEAN CORPUSCULAR VOLUME 87 fl (80-97); MONOCYTES % (AUTO) 5.4 % (3-13); RED BLOOD COUNT 3.72 10^6/uL (4.35-5.55); RED CELL DISTRIBUTION WIDTH 14.7 % (11.5-14.0); SEGMENTED NEUTROPHILS % (AUTO) 76.1 % (42-78); TOTAL CELLS COUNTED % (AUTO) 100 %; WHITE BLOOD COUNT 5.1 10^3/uL (4.0-10.5)
[2018-05-21 06:05] LABS: ANION GAP 11 (5-19); BLOOD UREA NITROGEN 5 mg/dL (7-20); CALCIUM 7.9 mg/dL (8.4-10.2); CARBON DIOXIDE 23 mmol/L (22-30); CHLORIDE 112 mmol/L (98-107); GLUCOSE 111 mg/dL (75-110); POTASSIUM 3.2 mmol/L (3.6-5.0); SODIUM 145.7 mmol/L (137-145)
[2018-05-21 06:38] LABS: HEMOGLOBIN 11.5 g/dL (13.5-17.0); PLATELET COUNT 86 10^3/uL (150-450)
[2018-05-21] MEDS ORDERED: CEFTRIAXONE 1 GM/D5W RTU 1 GM/50 ML RTUPB IV SCH (08:00)
[2018-05-21] MEDS ORDERED: POTASSIUM CHLORIDE 10 MEQ CAPSULE.ER PO ONE (08:08)
[2018-05-21] MEDS: AZITHROMYCIN 500 MG in DEXTROSE 5%-WATER 250 ML IV SCH (08:39)
[2018-05-21] MEDS ORDERED: CEFTRIAXONE SODIUM 1,000 MG in NORMAL SALINE 50 ML IV ONE (10:00)
--- NOTE | 2018-05-21 12:05 | RADIOLOGY REPORT (SQ) ---
EXAM DESCRIPTION: L SPINE 2 VIEWS COMPLETED DATE/TIME: 05/21/2018 11:19 am REASON FOR STUDY: left leg pain and numbess COMPARISON: CT abdomen pelvis 05/20/2018, lumbar spine radiographs 05/21/2018 NUMBER OF VIEWS: Two views. TECHNIQUE: AP and lateral radiographic images acquired of the lumbar spine. LIMITATIONS: None. FINDINGS: MINERALIZATION: Normal. SEGMENTATION: Normal. No transitional anatomy. ALIGNMENT: Normal. VERTEBRAE: Maintained height. No fracture or worrisome bone lesion. DISCS: Preserved height. No significant osteophytes or end plate irregularity. POSTERIOR ELEMENTS: Pedicles and facets are intact. No pars defect or posterior arch defects. HARDWARE: None in the spine. PARASPINAL SOFT TISSUES: Normal. PELVIS: Intact as visualized. No fractures or worrisome bone lesions. SI joints intact. OTHER: Metallic clips in the right upper quadrant of the abdomen. No other significant finding. IMPRESSION: NORMAL 2 VIEW LUMBAR SPINE. TECHNICAL DOCUMENTATION: JOB ID: [id number] [employer]- All Rights Reserved Reading location - IP/workstation name: [email or web address]
[2018-05-21] MEDS: FLUTICASONE NASAL SPRAY 50 MCG/SPRY 120 SPRAY/16 GM NASL SCH ×2 (12:19→21:33)
--- NOTE | 2018-05-21 13:40 | RADIOLOGY REPORT (SQ) ---
EXAM DESCRIPTION: MRI LUMBAR SPINE WITHOUT COMPLETED DATE/TIME: 05/21/2018 12:17 pm REASON FOR STUDY: Pain and numbness of the left lower extremity COMPARISON: None. TECHNIQUE: Sagittal and Axial imaging includes T1, T2, STIR and gradient echo sequences. Coronal T2/ HASTE imaging. LIMITATIONS: None. FINDINGS: VISUALIZED UPPER ABDOMEN: Limited evaluation. No acute or suspicious findings suggested. SEGMENTATION: No transitional anatomy. The lowest well-developed disc space is labeled L5-S1. ALIGNMENT: Anatomic. VERTEBRAE: Intact. BONE MARROW: Normal. No marrow replacement or reactive changes. DISC SIGNAL: Mild loss of T2 signal L4-5. POSTERIOR ELEMENTS: Generally intact. No pars defect evident. HARDWARE: None in the spine. CORD AND CONUS: Normal in size and signal intensity. Conus at the appropriate level. SOFT TISSUES: No aortic aneurysm seen. No bulky retroperitoneal adenopathy or mass. No paraspinal mas s or fluid. L1-L2: No significant spinal stenosis or exit foraminal stenosis. L2-L3: No significant spinal stenosis or exit foraminal stenosis. L3-L4: No significant spinal stenosis or exit foraminal stenosis. L4-L5: Mild disc bulge with mild narrowing of the exit foramina. L5-S1: No significant spinal stenosis or exit foraminal stenosis. LOWER THORACIC: Incompletely imaged. No stenosis seen. SACRUM: Visualized upper sacrum intact. OTHER: No other significant findings. IMPRESSION: L4-5 mild disc bulge with mild narrowing of the exit foramina. TECHNICAL DOCUMENTATION: JOB ID: [id number] [employer]- All Rights Reserved Reading location - IP/workstation name: [email or web address]
--- NOTE | 2018-05-21 14:31 | PDOC PROGRESS REPORT ---
Subjective Progress Note for:: 05/21/18 Subjective:: This is 57 years old male patient presented with chief complaint of shortness of breath fever and shaking chills. His chest x-ray shows left lower lobe infiltrate compatible with pneumonia. 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 Patient quits smoking 8 years ago. I seen and examined the patient while he was sitting on recliner. He reports this is shortness of breath is relatively subsiding. He complains of right leg pain weakness and numbness for this I requested lumbar x-ray and lumbar MRI with and without contrast and reported by the radiologist as normal. Patient is being treated with antibiotics and bronchodilators and supplemental oxygen. Reason For Visit: COPD EXACERBATION PNEUMONIA Physical Exam Vital Signs: Temp Pulse Resp BP Pulse Ox 97.9 F 61 16 108/63 98 05/21/18 07:30 05/21/18 08:43 05/21/18 08:43 05/21/18 07:30 05/21/18 08:43 Pulse Oximeter Continuous Start: 05/20/18 06: 03 Freq: RTQ4 Status: Active Document 05/21/18 08:43 TPO (Rec: 05/21/18 10:06 TPO [id number]) Pulse Oximetry Assessment Oxygen Saturation (92-100) 98 Oxygen Delivery Method Room Air Equipment Usage Equipment in Use Continuous SpO2 Machine # 14 Intake & Output 05/20/18 05/21/18 05/22/18 06:59 06:59 06:59 Intake Total 1050 3696 300 Output Total 475 Balance 1050 3221 300 Weight 76.3 kg General appearance: PRESENT: no acute distress Head exam: PRESENT: atraumatic Mouth exam: PRESENT: moist Neck exam: ABSENT: carotid bruit, JVD, lymphadenopathy, thyromegaly Respiratory exam: PRESENT: crackles - Left lung Cardiovascular exam: PRESENT: RRR. ABSENT: diastolic murmur, rubs, systolic murmur GI/Abdominal exam: PRESENT: normal bowel sounds, soft. ABSENT: distended, guarding, mass, organolmegaly, rebound, tenderness Extremities exam: PRESENT: full ROM. ABSENT: calf tenderness, clubbing, pedal edema Neurological exam: PRESENT: alert, awake, oriented to time, oriented to situation Results Laboratory Results: 05/21/18 04:53 05/21/18 04:53 05/21/18 05/21/18 04:53 04:53 WBC 5.1 RBC 3.72 L Hgb 11.5 L D Hct 32.3 L MCV 87 MCH 30.9 MCHC 35.6 RDW 14.7 H Plt Count 86 L Seg Neutrophils % 76.1 Lymphocytes % 15.2 Monocytes % 5.4 Eosinophils % 2.8 Basophils % 0.5 Absolute Neutrophils 3.9 Absolute Lymphocytes 0.8 Absolute Monocytes 0.3 Absolute Eosinophils 0.1 Absolute Basophils 0.0 Sodium 145.7 H Potassium 3.2 L Chloride 112 H Carbon Dioxide 23 Anion Gap 11 BUN 5 L Creatinine 0.78 Est GFR ( Amer) > 60 Est GFR (Non-Af Amer) > 60 Glucose 111 H Calcium 7.9 L Impressions: Chest X-Ray 05/20/18 04:24 IMPRESSION: Small lingular pneumonia/atelectasis. Lumbar Spine MRI 05/21/18 00:00 IMPRESSION: L4-5 mild disc bulge with mild narrowing of the exit foramina. Lumbar Spine X-Ray 05/21/18 00:00 IMPRESSION: NORMAL 2 VIEW LUMBAR SPINE. Assessment & Plan - Diagnosis (1) Community acquired pneumonia Qualifiers: Laterality: left Is this a current diagnosis for this admission?: Yes Plan: Continue current regimen. 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 Supportive management. (3) COPD exacerbation Is this a current diagnosis for this admission?: Yes Plan: Continue current regimen (4) Irritable bowel syndrome with constipation Is this a current diagnosis for this admission?: Yes Plan: Continue home medication (5) SIRS (systemic inflammatory response syndrome) Is this a current diagnosis for this admission?: Yes Plan: Letter to his pneumonia (6) Leg pain, left Is this a current diagnosis for this admission?: Yes Plan: Pain management
[2018-05-21] MEDS: FAMOTIDINE INJ/PF 20 MG/2 ML SDV IV SCH (22:57)
[2018-05-22] MEDS: IPRATROPIUM/ALBUTEROL 0.5-2.5 MG/3 ML AMPUL NEB SCH ×2 (02:22→07:45)
[2018-05-22] MEDS: HEPARIN SOD (PORCINE) 5,000 UNIT/ML 1 ML SYRINGE SUBCUT SCH (06:16)
[2018-05-22 07:37] LABS: ANION GAP 10 (5-19); BLOOD UREA NITROGEN 6 mg/dL (7-20); CALCIUM 8.4 mg/dL (8.4-10.2); CARBON DIOXIDE 24 mmol/L (22-30); CHLORIDE 110 mmol/L (98-107); GLUCOSE 103 mg/dL (75-110); POTASSIUM 3.6 mmol/L (3.6-5.0); SODIUM 143.6 mmol/L (137-145)
[2018-05-22] MEDS ORDERED: CEFTRIAXONE SODIUM 1,000 MG in NORMAL SALINE 50 ML IV SCH (08:00)
[2018-05-22] MEDS: AZITHROMYCIN 500 MG in DEXTROSE 5%-WATER 250 ML IV SCH (09:50)
--- NOTE | 2018-05-22 10:50 | PDOC DISCHARGE SUMMARY ---
General - Admit/Disc Date/PCP Admission Date/Primary Care Provider: 05/20/18 06:03 JASON GUERIN, Discharge Date: 05/22/18 - Discharge Diagnosis (1) Community acquired pneumonia Is this a current diagnosis for this admission?: Yes (2) [place] disease Is this a current diagnosis for this admission?: Yes (3) COPD exacerbation Is this a current diagnosis for this admission?: Yes (4) Irritable bowel syndrome with constipation Is this a current diagnosis for this admission?: Yes (5) SIRS (systemic inflammatory response syndrome) Is this a current diagnosis for this admission?: Yes (6) Leg pain, left Is this a current diagnosis for this admission?: Yes - Additional Information Resuscitation Status: Full Code Home Medications: Acid Reflux Med 0 mg PO DAILY MDD otc patient cant remember name 05/20/18 Colchicine [Colcrys 0.6 mg Tablet] 0.6 mg PO DAILYP PRN 05/20/18 History of Present Illness History of Present Illness: ISHAN BAILEY is a 57 year old male with a past medical history of Gilbert's, COPD and constipation predominant irritable bowel syndrome who presents with 24 hours of fever, shortness of breath and nonproductive cough. Denying rhinorrhea , sore throat, infectious contacts but admits uncontrolled GERD. In the emergency room he has an extensive workup and found to have fever of 102.7, infiltrate of the left lower lobe and constipation. He started on empiric antibiotics and for the hospitalist for admission. Patient denies recent antibiotic use. Hospital Course Hospital Course: his is 57 years old male patient presented with chief complaint of shortness of breath fever and shaking chills. His chest x-ray shows left lower lobe infiltrate compatible with pneumonia. 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 Patient quits smoking 8 years ago. I seen and examined the patient while he was sitting on recliner. He reports this is shortness of breath is relatively subsiding. He complains of right leg pain weakness and numbness for this I requested lumbar x-ray and lumbar MRI with and without contrast and reported by the radiologist as normal. Patient has been treated with antibiotics and supplemental oxygen. This morning I seen patient resting in bed comfortably is not impairing her renal form of distress, he is breathing room air. His vital signs and labs are within normal limits. Patient is stable enough to be discharged today. Physical Exam Vital Signs: Temp Pulse Resp BP Pulse Ox 98.3 F 63 16 130/79 H 96 05/21/18 23:44 05/22/18 07:45 05/22/18 07:45 05/21/18 23:44 05/22/18 07:45 Pulse Oximeter Continuous Start: 05/20/18 06: 03 Freq: RTQ4 Status: Active Document 05/22/18 07:45 TPO (Rec: 05/22/18 07:54 TPO [id number]) Pulse Oximetry Assessment Oxygen Saturation (92-100) 96 Oxygen Delivery Method Room Air Fraction of Inspired Oxygen (FIO2) 21 Equipment Usage Equipment in Use Continuous SpO2 Machine # 14 Intake & Output 05/21/18 05/22/18 05/23/18 06:59 06:59 06:59 Intake Total 3696 920 Output Total 475 950 Balance 3221 -30 Weight 76.3 kg 77.3 kg General appearance: PRESENT: no acute distress, well-developed, well-nourished Head exam: PRESENT: atraumatic, normocephalic Eye exam: PRESENT: conjunctiva pink, EOMI, PERRLA. ABSENT: scleral icterus Ear exam: PRESENT: normal external ear exam Mouth exam: PRESENT: moist, tongue midline Neck exam: ABSENT: carotid bruit, JVD, lymphadenopathy, thyromegaly Respiratory exam: PRESENT: clear to auscultation francisca. ABSENT: rales, rhonchi, wheezes Cardiovascular exam: PRESENT: RRR. ABSENT: diastolic murmur, rubs, systolic murmur Pulses: PRESENT: normal dorsalis pedis pul Vascular exam: PRESENT: normal capillary refill GI/Abdominal exam: PRESENT: normal bowel sounds, soft. ABSENT: distended, guarding, mass, organolmegaly, rebound, tenderness Rectal exam: PRESENT: deferred Extremities exam: PRESENT: full ROM. ABSENT: calf tenderness, clubbing, pedal edema Neurological exam: PRESENT: alert, awake, oriented to person, oriented to place , oriented to time, oriented to situation, CN II-XII grossly intact. ABSENT: motor sensory deficit Psychiatric exam: PRESENT: appropriate affect, normal mood. ABSENT: homicidal ideation, suicidal ideation Skin exam: PRESENT: dry, intact, warm. ABSENT: cyanosis, rash Results Laboratory Results: 05/21/18 04:53 05/22/18 06:20 05/22/18 06:20 Sodium 143.6 Potassium 3.6 Chloride 110 H Carbon Dioxide 24 Anion Gap 10 BUN 6 L Creatinine 0.78 Est GFR ( Amer) > 60 Est GFR (Non-Af Amer) > 60 Glucose 103 Calcium 8.4 Impressions: Chest X-Ray 05/20/18 04:24 IMPRESSION: Small lingular pneumonia/atelectasis. Lumbar Spine MRI 05/21/18 00:00 IMPRESSION: L4-5 mild disc bulge with mild narrowing of the exit foramina. Lumbar Spine X-Ray 05/21/18 00:00 IMPRESSION: NORMAL 2 VIEW LUMBAR SPINE. Qualifiers - * PATIENT BEING DISCHARGED WITH ANY OF THE FOLLOWING DIAGNOSIS: No
[2018-05-22] MEDS: FAMOTIDINE INJ/PF 20 MG/2 ML SDV IV SCH (12:46)
[2018-05-22] MEDS: FLUTICASONE NASAL SPRAY 50 MCG/SPRY 120 SPRAY/16 GM NASL SCH (12:47)
[2018-05-22 12:53] VITALS: BP 132/83
== END 2018-05-22 13:10 | disposition home or self-care (01) | DRG 194 ==
LOC: ER 04:08 → EH 06:03 → 4N 11:41
PROVIDERS: ADMIT Internal Medicine; ATTEND Internal Medicine
DX: J18.9 Pneumonia, unspecified organism (principal); J44.1 Chronic obstructive pulmonary disease with (acute) exacerbation; J44.0 Chronic obstructive pulmonary disease with (acute) lower respiratory infection; M79.605 Pain in left leg; K21.9 Gastro-esophageal reflux disease without esophagitis; K58.1 Irritable bowel syndrome with constipation; E80.4 Gilbert syndrome; E80.6 Other disorders of bilirubin metabolism; Z87.891 Personal history of nicotine dependence
CPT/HCPCS: 36415; 71045; 71275; 72100; 72148; 74177; 80048; 80053; 81001; 82803; 82962; 83605; 83690; 84484; 85025; 85610; 87040; 87086; 93005; 93010; 94640; 94762; 94799; 96360; 99291; J0456; J0696; J1644; J1885; J3480; J3490; J7030; J7060; J7620; S0028

== ENCOUNTER → 2018-05-27 | Outpatient (CLI) | payer OTHER ==
--- NOTE | 2018-05-27 16:25 | RADIOLOGY REPORT (SQ) ---
EXAM DESCRIPTION: CHEST PA/LATERAL COMPLETED DATE/TIME: 05/27/2018 3:48 pm REASON FOR STUDY: PNEUMONIA COMPARISON: 05/20/2018. EXAM PARAMETERS: NUMBER OF VIEWS: two views TECHNIQUE: Digital Frontal and Lateral radiographic views of the chest acquired. RADIATION DOSE: NA LIMITATIONS: none FINDINGS: LUNGS AND PLEURA: No opacities, masses or pneumothorax. No pleural effusion. MEDIASTINUM AND HILAR STRUCTURES: No masses or contour abnormalities. HEART AND VASCULAR STRUCTURES: Heart normal size. No evidence for failure. BONES: No acute findings. HARDWARE: None in the chest. OTHER: No other significant finding. IMPRESSION: NO SIGNIFICANT RADIOGRAPHIC FINDING IN THE CHEST. TECHNICAL DOCUMENTATION: JOB ID: [id number] [employer]- All Rights Reserved Reading location - IP/workstation name: [email or web address]
== END ==
LOC: CCC 15:31
DX: J18.9 Pneumonia, unspecified organism (principal)
CPT/HCPCS: 71046

== ENCOUNTER 2018-06-22 14:08 | Emergency (ER) | payer OTHER ==
[2018-06-22 14:16] VITALS: BP 109/75
--- NOTE | 2018-06-22 14:48 | RADIOLOGY REPORT (SQ) ---
EXAM DESCRIPTION: CHEST 2 VIEWS COMPLETED DATE/TIME: 06/22/2018 2:40 pm REASON FOR STUDY: cough, recent pneumonia COMPARISON: None. EXAM PARAMETERS: NUMBER OF VIEWS: two views TECHNIQUE: Digital Frontal and Lateral radiographic views of the chest acquired. RADIATION DOSE: NA LIMITATIONS: none FINDINGS: LUNGS AND PLEURA: No opacities, masses or pneumothorax. No pleural effusion. MEDIASTINUM AND HILAR STRUCTURES: No masses or contour abnormalities. HEART AND VASCULAR STRUCTURES: Heart normal size. No evidence for failure. BONES: No acute findings. HARDWARE: None in the chest. OTHER: No other significant finding. IMPRESSION: NO ACUTE RADIOGRAPHIC FINDING IN THE CHEST. TECHNICAL DOCUMENTATION: JOB ID: [id number] [employer]- All Rights Reserved Reading location - IP/workstation name: [email or web address]
[2018-06-22] MEDS ORDERED: DEXAMETHASONE SOD PHOS INJ 10 MG/1 ML VIAL IM ONE (15:19)
--- NOTE | 2018-06-22 15:19 | ER Document Report ---
HPI - HPI Pain Level: 3 Notes: Patient is a 57-year-old male with a history of COPD, Gilbert's syndrome, and asthma who presents to the ED complaining of feeling feverish yesterday and having a dry nonproductive cough over the last couple days. Patient states that his cough is not constant. Patient states that he did spend time in the hospital a couple weeks ago for pneumonia. Patient was concerned and just want to make sure that no pneumonia was starting up again. Denies any drug allergies. Patient is a former smoker. He is eating and drinking without any difficulties. He is urinating normally and having normal bowel movements. Denies any headache, head injury, neck pain, URI, sore throat, chest pain, palpitations, syncope, shortness of breath, wheeze, dyspnea, abdominal pain, nausea/vomiting/diarrhea, urinary retention, dysuria, hematuria, or rash. - ROS Systems Reviewed and Negative: Yes All other systems reviewed and negative Past Medical History - Social History Smoking Status: Former Smoker Family History: Reviewed & Not Pertinent, Other - Lymphoma, breast cancer and hepatic cirrhosis Pulmonary Medical History: Reports: Hx Asthma, Hx COPD Renal/ Medical History: Denies: Hx Peritoneal Dialysis Past Surgical History: Reports: Hx Cholecystectomy Vertical Provider Document - CONSTITUTIONAL Agree With Documented VS: Yes Notes: PHYSICAL EXAMINATION: GENERAL: Well-appearing, well-nourished and in no acute distress. HEAD: Atraumatic, normocephalic. EYES: Pupils equal round and reactive to light, extraocular movements intact, sclera anicteric, conjunctiva are normal. ENT: EAC clear b/l. TM's intact b/l without erythema, fluid, or perforation. Nares patent and without discharge. oropharynx clear without exudates. No tonsilar hypertrophy or erythema. Moist mucous membranes. No sinus tenderness. NECK: Normal range of motion, supple without lymphadenopathy LUNGS: Breath sounds clear to auscultation bilaterally and equal. No wheezes rales or rhonchi. No retractions HEART: Regular rate and rhythm without murmurs, rubs, gallops. ABDOMEN: Soft, nontender, nondistended abdomen. No guarding, no rebound. No masses appreciated. Normal bowel sounds present. No CVA tenderness bilaterally. Musculoskeletal: FROM to passive/active. Strength 5+/5. Extremities: No cyanosis, clubbing, or edema b/l. Peripheral pulses 2+. Capillary refill less than 3 seconds. NEUROLOGICAL: Normal speech, normal gait. PSYCH: Normal mood, normal affect. SKIN: Warm, Dry, normal turgor, no rashes or lesions noted. - INFECTION CONTROL TRAVEL OUTSIDE OF THE [place] IN LAST 30 DAYS: No Course - Re-evaluation Re-evalutation: 06/22/18 15:22 Patient is an afebrile, well-hydrated, 57-year-old male who presents to the ED with a cough which I suspect to be bronchitis at this time. Vitals are acceptable without any significant tachycardia, tachypnea, or hypoxia. PE is otherwise unremarkable. Patient is nontoxic-appearing and is tolerating p.o. without difficulties. Chest x-ray was unremarkable. No further labs or imaging warranted at this time based on H&P. Decadron given IM today. Patient' s presentation symptomatology creates low suspicion for any ACS, PE, pneumothorax, pericarditis, dissection, respiratory compromise, severe dehydration, sepsis, meningitis, or other systemic emergent condition at this time. Patient is aware that his condition can change from initial presentation and he needs to monitor symptoms closely and seek medical attention for any acute changes. I will send him home with a prescription for Tessalon. Recommend conservative measures for symptoms. Recheck with your PCM in 3-5 days. Return to the ED with any worsening/concerning symptoms otherwise as reviewed in discharge. Patient is in agreement. - Vital Signs Vital signs: Temp Pulse Resp BP Pulse Ox 98.0 F 69 16 109/75 98 06/22/18 14:14 06/22/18 14:14 06/22/18 14:14 06/22/18 14:14 06/22/18 14:14 Discharge - Discharge Clinical Impression: Acute bronchitis Qualifiers: Bronchitis organism: unspecified organism Qualified Code(s): J20.9 - Acute bronchitis, unspecified Condition: Stable Disposition: HOME, SELF-CARE Additional Instructions: Maintain adequate fluid intake Take meds as directed tylenol/ibuprofen as needed over the counter cold medication as needed for symptoms Humidified air may help Wash your hands regularly Wear a mask when coughing F/u: with your PCM in 3-5 days for a recheck Return to the ED with any fever, worsening pain, chest pain, palpitations, syncope, worsening PINEDA, neck pain/stiffness, shortness of breath, wheezing, drooling, trouble swallowing/breathing, abdominal pain, n/v/d, rash, or worsening/concerning symptoms otherwise. Prescriptions: Benzonatate [Tessalon Perle 100 mg Capsule] 100 mg PO Q8HP PRN #15 cap PRN Reason: Referrals: [facility] [Primary Care Provider] - Follow up in 3-5 days
== END 2018-06-22 15:40 | disposition home or self-care (01) ==
LOC: ER 14:08
DX: J20.9 Acute bronchitis, unspecified (principal); R05 Cough; R50.9 Fever, unspecified; Z87.891 Personal history of nicotine dependence
CPT/HCPCS: 99284; 71046; J1100

== ENCOUNTER → 2018-08-03 | Outpatient (CLI) | payer OTHER ==
--- NOTE | 2018-08-03 13:48 | RADIOLOGY REPORT (SQ) ---
EXAM DESCRIPTION: CT CHEST WITH COMPLETED DATE/TIME: 08/03/2018 1:16 pm REASON FOR STUDY: R91.1 SOLITARY PULMONARY NODULE R91.1 SOLITARY PULMONARY NODULE COMPARISON: 05/20/2018. TECHNIQUE: CT scan of the chest performed using helical scanning technique with dynamic intravenous contrast injection. Images reviewed with lung, soft tissue and bone windows. Reconstructed coronal and sagittal MPR and MIP images reviewed. All images stored on PACS. All CT scanners at this facility use dose modulation, iterative reconstruction, and/or weight based d osing when appropriate to reduce radiation dose to as low as reasonably achievable (ALARA). [facility]: Dose Right [facility]: CareDose [facility]: Dose Right [facility]: Teradose 4D [facility]: Gaia Herbs CONTRAST TYPE AND DOSE: contrast/concentration: Isovue 350.00 mg/ml; Total Contrast Delivered: 80.0 ml; Total Saline Delivered: 55.0 ml RENAL FUNCTION: Creatinine 1.0. RADIATION DOSE: CT Rad equipment meets quality standard of care and radiation dose reduction techniq ues were employed. CTDIvol: 8.5 mGy. DLP: 315 mGy-cm. . LIMITATIONS: None. FINDINGS: LUNGS AND PLEURA: Previously seen indistinct sub solid nodules have resolved. No opacitie s, nodules, masses. No pneumothorax. No effusions. HILAR AND MEDIASTINAL STRUCTURES: No identified masses or abnormal nodes. HEART AND VASCULAR STRUCTURES: No aneurysm or dissection. No central pulmonary emboli. No pericardi al effusion. HARDWARE: None in the chest. UPPER ABDOMEN: No significant findings. Limited exam. THYROID AND OTHER SOFT TISSUES: No masses. No adenopathy. BONES: No significant finding. OTHER: No other significant finding. IMPRESSION: NORMAL CT OF THE CHEST WITH IV CONTRAST. PREVIOUSLY SEEN INDISTINCT SUB SOLID NODULES H AVE RESOLVED. TECHNICAL DOCUMENTATION: JOB ID: [id number] Quality ID # [id number]: Final reports with documentation of one or more dose reduction techniques (e.g., Au tomated exposure control, adjustment of the mA and/or kV according to patient size, use of iterative reconstruction technique) 2010 [employer]- All Rights Reserved Reading location - IP/workstation name: [email or web address]
== END ==
LOC: RAD 14:06
DX: R91.1 Solitary pulmonary nodule (principal)
CPT/HCPCS: 71260; 82565

== ENCOUNTER 2018-08-27 13:19 | Inpatient (IN) | payer SELFPAY ==
[2018-08-27] MEDS ORDERED: RINGERS SOLUTION,LACTATED 1,000 ML IV ONE ×2 (14:05→15:02)
--- NOTE | 2018-08-27 14:05 | ER Document Report ---
ED General - General Chief Complaint: Chest Pain Stated Complaint: CHEST PAIN Time Seen by Provider: 08/27/18 14:03 Notes: Patient is a 57-year-old male with COPD that presents to the emergency department for chief complaint of cough, chills, night sweats. Patient states his symptoms started last night, he is at associated chest pain with his cough, and taking a deep breath. He does have COPD. He reports he recently was admitted for pneumonia approximately 2 months ago, and this is seemingly similar to his presentation at that time. He has had mild short of breath associated with this, and a productive cough, he has had a couple episodes that he reports of hemoptysis since this started as well. Currently describes his pain as a sharp pain, as a 4 out of 10, with cough and deep breath. Past Medical History: COPD, asthma, Guilbert syndrome Past Surgical History: Cholecystectomy, ear surgery Social History: Former smoker, denies alcohol or illicit drug use Family History: Reviewed and noncontributory for presenting illness Allergies: Reviewed, see documented allergy list. REVIEW OF SYSTEMS: Other than noted above, the 12 point review of systems was reviewed with the patient and were negative, all pertinent findings are included in the HPI. PHYSICAL EXAMINATION: Vital signs reviewed, nursing noted reviewed. GENERAL: Patient is nontoxic appearing, but does appear uncomfortable HEAD: Atraumatic, normocephalic. EYES: Eyes appear normal, extraocular movements intact, sclera anicteric, conjunctiva are normal. ENT: nares patent, oropharynx clear without exudates. Moist mucous membranes. NECK: Normal range of motion, supple without lymphadenopathy LUNGS: Rhonchorous lung sounds bilaterally, no acute respiratory distress HEART: Heart rate tachycardic, regular rhythm, no audible murmur ABDOMEN: Soft, nontender, normoactive bowel sounds. No rebound, guarding, or rigidity. No masses appreciated. EXTREMITIES: Nontender, good range of motion, no pitting or edema. NEUROLOGICAL: No focal neurological deficits. Moves all extremities spontaneously Motor and sensory grossly intact on exam. PSYCH: Normal mood, normal affect. SKIN: Warm, Dry, normal turgor, no rashes or lesions noted on exposed skin TRAVEL OUTSIDE OF THE [place] IN LAST 30 DAYS: No - Related Data Allergies/Adverse Reactions: No Known Allergies Allergy (Verified 08/27/18 16:27) Past Medical History - Social History Smoking Status: Former Smoker Family History: Reviewed & Not Pertinent, Other - Lymphoma, breast cancer and hepatic cirrhosis Pulmonary Medical History: Reports: Hx Asthma, Hx COPD Renal/ Medical History: Denies: Hx Peritoneal Dialysis Past Surgical History: Reports: Hx Cholecystectomy Physical Exam - Vital signs Vitals: Temp Pulse Resp BP Pulse Ox 97.7 F 106 H 24 H 87/57 L 94 08/27/18 13:26 08/27/18 13:26 08/27/18 13:26 08/27/18 13:26 08/27/18 13:26 Course - Re-evaluation Re-evalutation: Patient seen and examined vital signs reviewed. Laboratory data and imaging were ordered as appropriate for the patient's presenting symptoms and complaint, with consideration of any critical or life threatening conditions that may be associated with their obtained history and exam as noted above. Patient was treated with IV fluid bolusing, and DuoNeb breathing treatment initially, for hypertension, and rhonchorous lungs Results were reviewed when available and demonstrated slightly elevated lactic acid, chest x-ray demonstrated right lower lobe pneumonia, which is consistent with the patient's clinical presentation, he had mild thrombocytopenia as well on his blood work, no leukocytosis The patient was re-evaluated and was feeling improved after breathing treatment , however blood pressure still borderline, is given additional IV fluid bolus, started on broad-spectrum IV antibiotics, with IV Zosyn, vancomycin and Levaquin , as the patient recently had pneumonia 2 months ago, and does have structural lung disease, did want to cover Pseudomonas. Evaluation was most consistent with right lower lobe pneumonia, severe sepsis Results were discussed with the patient at this point after careful consideration I feel that that patient should be admitted to the hospital. This was discussed with the patient that it is in the best interest for their care to be admitted for further evaluation and management. Patient agreed with this plan of care. A call was placed to the admitted physician, Dr. Mensah who graciously accepted the patient onto their service. *Note is created using voice recognition software and may contain spelling, syntax or grammatical errors. Laboratory 08/27/18 08/27/18 08/27/18 13:40 13:40 13:40 WBC 10.4 RBC 4.88 Hgb 15.0 Hct 42.0 MCV 86 MCH 30.8 MCHC 35.7 RDW 14.4 H Plt Count 119 L Total Counted 100 Seg Neutrophils % Not Reportable Seg Neuts % (Manual) 80 H Band Neutrophils % 6 H Lymphocytes % Not Reportable Lymphocytes % (Manual) 4 L Monocytes % Not Reportable Monocytes % (Manual) 10 Eosinophils % Not Reportable Eosinophils % (Manual) 0 Basophils % Not Reportable Basophils % (Manual) 0 Absolute Neutrophils Not Reportable Abs Neuts (Manual) 8.9 H Absolute Lymphocytes Not Reportable Abs Lymphs (Manual) 0.4 L Absolute Monocytes Not Reportable Abs Monocytes (Manual) 1.0 Absolute Eosinophils Not Reportable Absolute Eos (Manual) 0.0 Absolute Basophils Not Reportable Abs Basophils (Manual) 0.0 Clumped Platelets PRESENT Platelet Comment DECREASED Anisocytosis SLIGHT PT 14.2 INR 1.05 VBG pH VBG pCO2 VBG HCO3 VBG Base Excess Sodium 142.7 Potassium 3.8 Chloride 104 Carbon Dioxide 25 Anion Gap 14 BUN 16 Creatinine 1.25 Est GFR ( Amer) > 60 Est GFR (Non-Af Amer) > 60 Glucose 98 Lactic Acid Calcium 9.3 Total Bilirubin 4.4 H Direct Bilirubin 0.7 H Neonat Total Bilirubin Not Reportable Neonat Direct Bilirubin Not Reportable Neonat Indirect Bili Not Reportable AST 28 ALT 15 L Alkaline Phosphatase 76 Troponin I Total Protein 6.8 Albumin 3.8 Urine Color Urine Appearance Urine pH Ur Specific [place] Urine Protein Urine Glucose (UA) Urine Ketones Urine Blood Urine Nitrite Urine Bilirubin Urine Urobilinogen Ur Leukocyte Esterase Urine WBC (Auto) U Hyaline Cast (Auto) Urine Mucus (Auto) Urine Ascorbic Acid 08/27/18 08/27/18 08/27/18 13:40 13:40 13:40 WBC RBC Hgb Hct MCV MCH MCHC RDW Plt Count Total Counted Seg Neutrophils % Seg Neuts % (Manual) Band Neutrophils % Lymphocytes % Lymphocytes % (Manual) Monocytes % Monocytes % (Manual) Eosinophils % Eosinophils % (Manual) Basophils % Basophils % (Manual) Absolute Neutrophils Abs Neuts (Manual) Absolute Lymphocytes Abs Lymphs (Manual) Absolute Monocytes Abs Monocytes (Manual) Absolute Eosinophils Absolute Eos (Manual) Absolute Basophils Abs Basophils (Manual) Clumped Platelets Platelet Comment Anisocytosis PT INR VBG pH 7.37 VBG pCO2 47.3 VBG HCO3 26.9 VBG Base Excess 1.0 Sodium Potassium Chloride Carbon Dioxide Anion Gap BUN Creatinine Est GFR ( Amer) Est GFR (Non-Af Amer) Glucose Lactic Acid 2.2 H Calcium Total Bilirubin Direct Bilirubin Neonat Total Bilirubin Neonat Direct Bilirubin Neonat Indirect Bili AST ALT Alkaline Phosphatase Troponin I < 0.012 Total Protein Albumin Urine Color Urine Appearance Urine pH Ur Specific [place] Urine Protein Urine Glucose (UA) Urine Ketones Urine Blood Urine Nitrite Urine Bilirubin Urine Urobilinogen Ur Leukocyte Esterase Urine WBC (Auto) U Hyaline Cast (Auto) Urine Mucus (Auto) Urine Ascorbic Acid 08/27/18 08/27/18 15:46 18:11 WBC RBC Hgb Hct MCV MCH MCHC RDW Plt Count Total Counted Seg Neutrophils % Seg Neuts % (Manual) Band Neutrophils % Lymphocytes % Lymphocytes % (Manual) Monocytes % Monocytes % (Manual) Eosinophils % Eosinophils % (Manual) Basophils % Basophils % (Manual) Absolute Neutrophils Abs Neuts (Manual) Absolute Lymphocytes Abs Lymphs (Manual) Absolute Monocytes Abs Monocytes (Manual) Absolute Eosinophils Absolute Eos (Manual) Absolute Basophils Abs Basophils (Manual) Clumped Platelets Platelet Comment Anisocytosis PT INR VBG pH VBG pCO2 VBG HCO3 VBG Base Excess Sodium Potassium Chloride Carbon Dioxide Anion Gap BUN Creatinine Est GFR ( Amer) Est GFR (Non-Af Amer) Glucose Lactic Acid 2.7 H Calcium Total Bilirubin Direct Bilirubin Neonat Total Bilirubin Neonat Direct Bilirubin Neonat Indirect Bili AST ALT Alkaline Phosphatase Troponin I Total Protein Albumin Urine Color YELLOW Urine Appearance CLEAR Urine pH 6.0 Ur Specific [place] 1.008 Urine Protein NEGATIVE Urine Glucose (UA) NEGATIVE Urine Ketones NEGATIVE Urine Blood NEGATIVE Urine Nitrite NEGATIVE Urine Bilirubin NEGATIVE Urine Urobilinogen NEGATIVE Ur Leukocyte Esterase NEGATIVE Urine WBC (Auto) 0 U Hyaline Cast (Auto) 1 Urine Mucus (Auto) RARE Urine Ascorbic Acid NEGATIVE Chest X-Ray 08/27/18 14:16 IMPRESSION: In the appropriate clinical setting, findings are consistent with lobar pneumonia. - Vital Signs Vital signs: Temp Pulse Resp BP Pulse Ox 98.4 F 104 H 20 104/64 98 08/27/18 19:44 08/27/18 19:44 08/27/18 19:44 08/27/18 19:44 08/27/18 19:44 - Laboratory Result Diagrams: 08/27/18 13:40 08/27/18 13:40 Laboratory results interpreted by me: 08/27/18 08/27/18 08/27/18 13:40 13:40 13:40 RDW 14.4 H Plt Count 119 L Seg Neuts % (Manual) 80 H Band Neutrophils % 6 H Lymphocytes % (Manual) 4 L Abs Neuts (Manual) 8.9 H Abs Lymphs (Manual) 0.4 L Lactic Acid 2.2 H Total Bilirubin 4.4 H Direct Bilirubin 0.7 H ALT 15 L Critical Care Note - Critical Care Note Total time excluding time spent on procedures (mins): 35 Comments: Critical care time 35 minutes exclusive from separate billable procedures for a patient requiring complex medical decision making, and high potential for clinical deterioration. In a patient with severe sepsis, secondary to lobar pneumonia. Time spent obtaining history from patient or surrogate, discussions with consultants, development of treatment plan with patient or surrogate, evaluation of patient's response to treatment, examination of patient, ordering and performing treatments and interventions, ordering and review of laboratory studies, re-evaluation of patient's condition, ordering and review of radiographic studies and review of old charts Discharge - Discharge Clinical Impression: Thrombocytopenia, Severe sepsis Pneumonia Qualifiers: Pneumonia type: due to unspecified organism Laterality: right Lung location: lower lobe of lung Qualified Code(s): J18.1 - Lobar pneumonia, unspecified organism Hypotension Qualifiers: Hypotension type: unspecified hypotension type Qualified Code(s): I95.9 - Hypotension, unspecified Condition: Stable Disposition: ADMITTED INPATIENT Admitting Provider: Hospitalist - DR. MENSAH Unit Admitted: [facility]
[2018-08-27] MEDS ORDERED: IPRATROPIUM/ALBUTEROL 0.5-2.5 MG/3 ML AMPUL NEB ONE (14:17)
[2018-08-27 14:23] LABS: VENOUS BLOOD HCO3 26.9 mmol/L (20-32); VENOUS BLOOD PCO2 47.3 mmHg (35-63); VENOUS BLOOD PH 7.37 (7.30-7.42)
[2018-08-27 14:25] LABS: INTERNATIONAL RATION (INR) 1.05; PROTHROMBIN TIME 14.2 SEC (11.4-15.4)
[2018-08-27 14:29] LABS: MEAN CORPUSCULAR HEMOGLOBIN 30.8 pg (27.0-33.4); MEAN CORPUSCULAR HGB CONC 35.7 g/dL (32.0-36.0); MEAN CORPUSCULAR VOLUME 86 fl (80-97); PLATELET COUNT 119 10^3/uL (150-450); RED BLOOD COUNT 4.88 10^6/uL (4.35-5.55); RED CELL DISTRIBUTION WIDTH 14.4 % (11.5-14.0); WHITE BLOOD COUNT 10.4 10^3/uL (4.0-10.5)
[2018-08-27 14:30] LABS: ALANINE AMINOTRANSFERASE 15 U/L (21-72); ALBUMIN 3.8 g/dL (3.5-5.0); ALKALINE PHOSPHATASE 76 U/L (38-126); ANION GAP 14 (5-19); ASPARTATE AMINO TRANSFERASE 28 U/L (17-59); BILIRUBIN,DIRECT 0.7 mg/dL (0.0-0.4); BILIRUBIN,TOTAL 4.4 mg/dL (0.2-1.3); BLOOD UREA NITROGEN 16 mg/dL (7-20); CALCIUM 9.3 mg/dL (8.4-10.2); CARBON DIOXIDE 25 mmol/L (22-30); CHLORIDE 104 mmol/L (98-107); GLUCOSE 98 mg/dL (75-110); POTASSIUM 3.8 mmol/L (3.6-5.0); SODIUM 142.7 mmol/L (137-145); TOTAL PROTEIN 6.8 g/dL (6.3-8.2)
[2018-08-27 14:49] LABS: ABSOLUTE LYMPHOCYTES# (MANUAL) 0.4 10^3/uL (0.5-4.7); ABSOLUTE NEUTROPHILS# (MANUAL) 8.9 10^3/uL (1.7-8.2); ANISOCYTOSIS SLIGHT; BAND NEUTROPHILS % (MANUAL) 6 % (3-5); BASOPHILS % (MANUAL) 0 % (0-2); EOSINOPHILS % (MANUAL) 0 % (0-6); LYMPHOCYTES % (MANUAL) 4 % (13-45); MONOCYTES % (MANUAL) 10 % (3-13); PLATELET CLUMPS PRESENT; PLATELET COMMENT DECREASED; SEGMENTED NEUTROPHILS % (MAN) 80 % (42-78); TOTAL CELLS COUNTED 100
[2018-08-27] MEDS ORDERED: LEVOFLOXACIN 750 MG/D5W RTU 750 MG/150 ML RTUPB IV ONE (15:01)
[2018-08-27] MEDS ORDERED: VANCOMYCIN HCL INJ 1000 MG VIAL IV ONE (15:01)
[2018-08-27] MEDS ORDERED: PIPERACILLIN/TAZOBACTAM 4.5 GM VIAL IV ONE (15:01)
[2018-08-27] MEDS ORDERED: NORMAL SALINE 1000 ML 1,000 ML IV ONE (15:02)
--- NOTE | 2018-08-27 15:05 | RADIOLOGY REPORT (SQ) ---
EXAM DESCRIPTION: CHEST SINGLE VIEW COMPLETED DATE/TIME: 08/27/2018 2:32 pm REASON FOR STUDY: cough, short of breath COMPARISON: 06/22/2018 EXAM PARAMETERS: NUMBER OF VIEWS: One view. TECHNIQUE: Single frontal radiographic view of the chest acquired. RADIATION DOSE: NA LIMITATIONS: None. FINDINGS: LUNGS AND PLEURA: Multifocal airspace opacities are seen at the right lung base. The lung s are otherwise clear. No pleural effusion or pneumothorax is demonstrated. MEDIASTINUM AND HILAR STRUCTURES: No masses. Contour normal. HEART AND VASCULAR STRUCTURES: Heart normal in size. Normal vasculature. BONES: No acute findings. HARDWARE: None in the chest. OTHER: No other significant finding. IMPRESSION: In the appropriate clinical setting, findings are consistent with lobar pneumonia. TECHNICAL DOCUMENTATION: JOB ID: [id number] [email or web address]- All Rights Reserved Reading location - IP/workstation name: [email or web address]
[2018-08-27 16:01] LABS: APPEARANCE,URINE CLEAR; BILIRUBIN,URINE NEGATIVE (NEGATIVE); COLOR,URINE YELLOW; GLUCOSE, URINE NEGATIVE (NEGATIVE); KETONES,URINE NEGATIVE (NEGATIVE); LEUKOCYTE ESTERASE,URINE NEGATIVE (NEGATIVE); NITRITE,URINE NEGATIVE (NEGATIVE); PROTEIN,URINE NEGATIVE (NEGATIVE); URINE SPECIFIC GRAVITY 1.008; UROBILINOGEN,URINE NEGATIVE mg/dL (<2.0)
[2018-08-27] MEDS ORDERED: IPRATROPIUM/ALBUTEROL 0.5-2.5 MG/3 ML AMPUL NEB PRN (16:46)
--- NOTE | 2018-08-27 16:46 | PDOC H&P ---
History of Present Illness Admission Date/PCP: 08/27/18 15:33 History of Present Illness: ISHAN BAILEY is a 57 year old male past medical history of COPD, asthma, Gilbert syndrome. Patient presented to ED complaining of nausea, nonbilious nonbloody vomiting x4 since yesterday, productive cough and pleuritic chest pain. She was admitted here at [facility] on 05/21/2018 for community-acquired pneumonia for 2 days and was sent home. Patient is stated he was feeling better until a week ago that he started having similar symptoms. In ED he was found to be tachycardic, hypotensive, tachypneic, leukocytosis with bandemia. Patient was started on SIRS protocol start on IV antibiotics in hospital was consulted for admission. Past Medical History Pulmonary Medical History: Reports: Asthma, Chronic Obstructive Pulmonary Disease (COPD) Past Surgical History Past Surgical History: Reports: Cholecystectomy Social History Smoking Status: Former Smoker Frequency of Alcohol Use: None Hx Recreational Drug Use: No Drugs: None Hx Prescription Drug Abuse: No Family History Family History: Reviewed & Not Pertinent, Other - Lymphoma, breast cancer and hepatic cirrhosis Parental Family History Reviewed: Yes Children Family History Reviewed: Yes Sibling(s) Family History Reviewed.: Yes Medication/Allergy Home Medications: Gabapentin [Neurontin 300 mg Capsule] 300 mg PO Q12 08/27/18 Naproxen [Naprosyn] 500 mg PO Q12 08/27/18 Omeprazole 40 mg PO QAM 08/27/18 Allergies/Adverse Reactions: No Known Allergies Allergy (Verified 08/27/18 16:27) Review of Systems Constitutional: ABSENT: chills, fever(s), headache(s), weight gain, weight loss Respiratory: ABSENT: cough, hemoptysis Gastrointestinal: ABSENT: abdominal pain, constipation, diarrhea, hematemesis, hematochezia, nausea, vomiting Musculoskeletal: ABSENT: joint swelling Neurological: ABSENT: abnormal gait, abnormal speech, confusion, dizziness, focal weakness, syncope Physical Exam Vital Signs: Temp Pulse Resp BP Pulse Ox 97.7 F 106 H 24 H 87/57 L 94 08/27/18 13:26 08/27/18 13:26 08/27/18 13:26 08/27/18 13:26 08/27/18 13:26 General appearance: PRESENT: no acute distress, well-developed, well-nourished Respiratory exam: PRESENT: crackles, tachypnea. ABSENT: rales, rhonchi, wheezes Cardiovascular exam: PRESENT: RRR. ABSENT: diastolic murmur, rubs, systolic murmur GI/Abdominal exam: PRESENT: normal bowel sounds, soft. ABSENT: distended, guarding, mass, organolmegaly, rebound, tenderness Extremities exam: PRESENT: full ROM. ABSENT: calf tenderness, clubbing, pedal edema Neurological exam: PRESENT: alert, awake, oriented to person, oriented to place , oriented to time, oriented to situation, CN II-XII grossly intact. ABSENT: motor sensory deficit Results Laboratory Results: 08/27/18 15:46 Urine Color YELLOW Urine Appearance CLEAR Urine pH 6.0 Ur Specific [place] 1.008 Urine Protein NEGATIVE Urine Glucose (UA) NEGATIVE Urine Ketones NEGATIVE Urine Blood NEGATIVE Urine Nitrite NEGATIVE Ur Leukocyte Esterase NEGATIVE Urine WBC (Auto) 0 Impressions: Chest X-Ray 08/27/18 14:16 IMPRESSION: In the appropriate clinical setting, findings are consistent with lobar pneumonia. Assessment & Plan - Diagnosis (1) Pneumonia Qualifiers: Pneumonia type: due to unspecified organism Laterality: right Lung location: lower lobe of lung Qualified Code(s): J18.1 - Lobar pneumonia, unspecified organism Is this a current diagnosis for this admission?: Yes Plan: Likely hospital-acquired pneumonia. Continue Vanco, levo, and Zosyn. Follow sputum and blood cultures. (2) SIRS (systemic inflammatory response syndrome) Is this a current diagnosis for this admission?: Yes Plan: Likely secondary to pneumonia. Sepsis protocol was started. Admit to IMCU. Monitor vitals and volume status. (3) History of COPD Is this a current diagnosis for this admission?: Yes Plan: DuoNeb, BiPAP, steroids, long-acting beta agonist and long-acting antimuscarinic 's.
[2018-08-27] MEDS ORDERED: VANCOMYCIN HCL 0 MG in DEXTROSE 5%-WATER 250 ML IV NR (17:00)
[2018-08-27] MEDS ORDERED: PIPERACILLIN/TAZOBACTAM 3.375 GM VIAL IV PRN (17:11)
[2018-08-27] MEDS: NORMAL SALINE 1000 ML 1,000 ML IV PRN (17:37)
[2018-08-27] MEDS: ACETAMINOPHEN 325 MG TABLET PO PRN (17:37)
[2018-08-27] MEDS: IPRATROPIUM/ALBUTEROL 0.5-2.5 MG/3 ML AMPUL NEB SCH (20:15)
--- NOTE | 2018-08-27 21:40 | EKG REPORT ---
SEVERITY:- NORMAL ECG - SINUS RHYTHM : Confirmed by: Chanelle Carmona MD 27-Aug-2018 21:39:28
[2018-08-27] MEDS: PIPERACILLIN SODIUM/TAZOBACTAM 3.375 GM in NORMAL SALINE 100 ML IV SCH (22:06)
[2018-08-27] MEDS: FAMOTIDINE INJ/PF 20 MG/2 ML SDV IV SCH (22:07)
[2018-08-27] MEDS: METHYLPREDNISOLONE INJ 40 MG/1 ML SDV IV SCH (22:07)
[2018-08-27] MEDS: GUAIFENESIN 600 MG TABLET.SA PO SCH (22:07)
[2018-08-27] MEDS: GABAPENTIN 300 MG CAPSULE PO SCH (22:07)
[2018-08-27] MEDS ORDERED: NAPROXEN 250 MG TABLET ONE (22:36)
[2018-08-27] MEDS: NAPROXEN 250 MG TABLET PO SCH (22:55)
[2018-08-28] MEDS ORDERED: VANCOMYCIN HCL INJ 1000 MG VIAL IV PRN (00:45)
[2018-08-28] MEDS ORDERED: VANCOMYCIN HCL 1,500 MG in DEXTROSE 5%-WATER 250 ML IV ONE (01:00)
[2018-08-28] MEDS ORDERED: VANCOMYCIN HCL INJ 1000 MG VIAL ONE (01:58)
[2018-08-28] MEDS: IPRATROPIUM/ALBUTEROL 0.5-2.5 MG/3 ML AMPUL NEB SCH ×4 (02:36→20:22)
[2018-08-28] MEDS: NORMAL SALINE 1000 ML 1,000 ML IV PRN ×4 (04:28→23:47)
[2018-08-28] MEDS: PIPERACILLIN SODIUM/TAZOBACTAM 3.375 GM in NORMAL SALINE 100 ML IV SCH ×5 (04:29→21:03)
[2018-08-28] MEDS: METHYLPREDNISOLONE INJ 40 MG/1 ML SDV IV SCH ×3 (06:45→21:07)
[2018-08-28 06:50] LABS: ALANINE AMINOTRANSFERASE 15 U/L (21-72); ALBUMIN 2.8 g/dL (3.5-5.0); ALKALINE PHOSPHATASE 50 U/L (38-126); ANION GAP 11 (5-19); ASPARTATE AMINO TRANSFERASE 22 U/L (17-59); BILIRUBIN,DIRECT 0.4 mg/dL (0.0-0.4); BILIRUBIN,TOTAL 3.6 mg/dL (0.2-1.3); BLOOD UREA NITROGEN 15 mg/dL (7-20); CALCIUM 8.6 mg/dL (8.4-10.2); CARBON DIOXIDE 23 mmol/L (22-30); CHLORIDE 110 mmol/L (98-107); GLUCOSE 156 mg/dL (75-110); POTASSIUM 4.1 mmol/L (3.6-5.0); SODIUM 143.5 mmol/L (137-145); TOTAL PROTEIN 5.4 g/dL (6.3-8.2)
[2018-08-28 07:06] LABS: HEMATOCRIT 35.6 % (37.9-51.0); MEAN CORPUSCULAR VOLUME 88 fl (80-97); RED BLOOD COUNT 4.03 10^6/uL (4.35-5.55); RED CELL DISTRIBUTION WIDTH 14.2 % (11.5-14.0); WHITE BLOOD COUNT 7.7 10^3/uL (4.0-10.5)
[2018-08-28 07:58] LABS: HEMOGLOBIN 12.5 g/dL (13.5-17.0); PLATELET COUNT 96 10^3/uL (150-450)
[2018-08-28] MEDS ORDERED: ENOXAPARIN SODIUM INJ 40 MG/0.4 ML DISP.SYRIN SUBCUT SCH (10:00)
[2018-08-28] MEDS: TIOTROPIUM BROMIDE DPI 5 CAP/KIT (18 MCG/CAP) IH SCH (10:58)
[2018-08-28] MEDS: GABAPENTIN 300 MG CAPSULE PO SCH ×2 (10:58→21:05)
[2018-08-28] MEDS: GUAIFENESIN 600 MG TABLET.SA PO SCH ×2 (10:58→21:05)
[2018-08-28] MEDS: FAMOTIDINE INJ/PF 20 MG/2 ML SDV IV SCH ×2 (10:58→21:06)
[2018-08-28] MEDS: NAPROXEN 250 MG TABLET PO SCH ×2 (10:59→21:05)
[2018-08-28] MEDS: LEVOFLOXACIN 750 MG/D5W RTU 750 MG/150 ML RTUPB IV SCH (10:59)
--- NOTE | 2018-08-28 17:24 | PDOC PROGRESS REPORT ---
Subjective Progress Note for:: 08/28/18 Subjective:: ISHAN BAILEY is a 57 year old male past medical history of COPD, asthma, Gilbert syndrome. Patient presented to ED complaining of nausea, nonbilious nonbloody vomiting x4 since yesterday, productive cough and pleuritic chest pain. She was admitted here at [facility] on 05/21/2018 for community-acquired pneumonia for 2 days and was sent home. Patient is stated he was feeling better until a week ago that he started having similar symptoms. In ED he was found to be tachycardic, hypotensive, tachypneic, leukocytosis with bandemia. Patient was started on SIRS protocol start on IV antibiotics in hospital was consulted for admission. 08/28/2018. No acute events overnight. Patient is stating that he is feeling much better and his cough improved since yesterday. On my encounter he is sitting comfortably in his recliner in no apparent distress. He denies any fever, chest pain, shortness of breath, diarrhea, constipation or any urinary symptoms. Reason For Visit: PNEUMONIA Physical Exam Vital Signs: Temp Pulse Resp BP Pulse Ox 97.4 F 95 16 96/61 L 100 08/28/18 15:36 08/28/18 15:36 08/28/18 14:09 08/28/18 15:36 08/28/18 15:36 Intake & Output 08/27/18 08/28/18 08/29/18 06:59 06:59 06:59 Intake Total 2894 2770 Balance 2894 2770 Weight 77.5 kg General appearance: PRESENT: no acute distress, well-developed, well-nourished Head exam: PRESENT: atraumatic, normocephalic Respiratory exam: PRESENT: clear to auscultation francisca, crackles. ABSENT: rales, rhonchi, wheezes Cardiovascular exam: PRESENT: RRR. ABSENT: diastolic murmur, rubs, systolic murmur GI/Abdominal exam: PRESENT: normal bowel sounds, soft. ABSENT: distended, guarding, mass, organolmegaly, rebound, tenderness Neurological exam: PRESENT: alert, awake, oriented to person, oriented to place , oriented to time, oriented to situation, CN II-XII grossly intact. ABSENT: motor sensory deficit Results Laboratory Results: 08/28/18 06:19 08/28/18 06:19 08/27/18 08/28/18 08/28/18 18:11 06:19 06:19 WBC 7.7 RBC 4.03 L Hgb 12.5 L D Hct 35.6 L MCV 88 MCH 31.0 MCHC 35.0 RDW 14.2 H Plt Count 96 L Sodium 143.5 Potassium 4.1 Chloride 110 H Carbon Dioxide 23 Anion Gap 11 BUN 15 Creatinine 0.90 Est GFR ( Amer) > 60 Est GFR (Non-Af Amer) > 60 Glucose 156 H Lactic Acid 2.7 H Calcium 8.6 Total Bilirubin 3.6 H AST 22 ALT 15 L Alkaline Phosphatase 50 Total Protein 5.4 L Albumin 2.8 L 08/28/18 11:35 WBC RBC Hgb Hct MCV MCH MCHC RDW Plt Count Sodium Potassium Chloride Carbon Dioxide Anion Gap BUN Creatinine Est GFR ( Amer) Est GFR (Non-Af Amer) Glucose Lactic Acid 4.5 H Calcium Total Bilirubin AST ALT Alkaline Phosphatase Total Protein Albumin Impressions: Chest X-Ray 08/27/18 14:16 IMPRESSION: In the appropriate clinical setting, findings are consistent with lobar pneumonia. Assessment & Plan - Diagnosis (1) Pneumonia Qualifiers: Pneumonia type: due to unspecified organism Laterality: right Lung location: lower lobe of lung Qualified Code(s): J18.1 - Lobar pneumonia, unspecified organism Is this a current diagnosis for this admission?: Yes Plan: Likely hospital-acquired pneumonia. Day 2 of Vanco, levo, and Zosyn. Sputum and blood cultures negative so far. (2) SIRS (systemic inflammatory response syndrome) Is this a current diagnosis for this admission?: Yes Plan: Likely secondary to pneumonia. Sepsis protocol was started. Admit to IMCU. Monitor vitals and volume status. (3) History of COPD Is this a current diagnosis for this admission?: Yes Plan: DuoNeb, BiPAP, steroids, long-acting beta agonist and long-acting antimuscarinic 's.
[2018-08-28] MEDS: VANCOMYCIN HCL 1,250 MG in DEXTROSE 5%-WATER 250 ML IV SCH (18:38)
[2018-08-28] MEDS: ACETAMINOPHEN 325 MG TABLET PO PRN (23:55)
[2018-08-29] MEDS: IPRATROPIUM/ALBUTEROL 0.5-2.5 MG/3 ML AMPUL NEB SCH ×2 (02:19→07:30)
[2018-08-29] MEDS: PIPERACILLIN SODIUM/TAZOBACTAM 3.375 GM in NORMAL SALINE 100 ML IV SCH ×2 (04:47→09:14)
[2018-08-29] MEDS: NORMAL SALINE 1000 ML 1,000 ML IV PRN (04:50)
[2018-08-29] MEDS: METHYLPREDNISOLONE INJ 40 MG/1 ML SDV IV SCH (05:10)
[2018-08-29] MEDS: VANCOMYCIN HCL 1,250 MG in DEXTROSE 5%-WATER 250 ML IV SCH (05:10)
[2018-08-29 05:27] LABS: HEMATOCRIT 32.5 % (37.9-51.0); HEMOGLOBIN 11.6 g/dL (13.5-17.0); MEAN CORPUSCULAR HEMOGLOBIN 31.1 pg (27.0-33.4); MEAN CORPUSCULAR HGB CONC 35.5 g/dL (32.0-36.0); MEAN CORPUSCULAR VOLUME 88 fl (80-97); RED BLOOD COUNT 3.71 10^6/uL (4.35-5.55); RED CELL DISTRIBUTION WIDTH 14.2 % (11.5-14.0); WHITE BLOOD COUNT 6.9 10^3/uL (4.0-10.5)
[2018-08-29 05:41] LABS: PLATELET COUNT 82 10^3/uL (150-450)
[2018-08-29 05:49] LABS: ALANINE AMINOTRANSFERASE 13 U/L (21-72); ALBUMIN 2.7 g/dL (3.5-5.0); ALKALINE PHOSPHATASE 55 U/L (38-126); ANION GAP 11 (5-19); ASPARTATE AMINO TRANSFERASE 18 U/L (17-59); BILIRUBIN,DIRECT 0.4 mg/dL (0.0-0.4); BILIRUBIN,TOTAL 1.6 mg/dL (0.2-1.3); BLOOD UREA NITROGEN 11 mg/dL (7-20); CALCIUM 8.6 mg/dL (8.4-10.2); CARBON DIOXIDE 18 mmol/L (22-30); CHLORIDE 115 mmol/L (98-107); GLUCOSE 205 mg/dL (75-110); POTASSIUM 3.6 mmol/L (3.6-5.0); SODIUM 143.5 mmol/L (137-145); TOTAL PROTEIN 5.4 g/dL (6.3-8.2)
[2018-08-29 05:58] LABS: ABSOLUTE LYMPHOCYTES# (MANUAL) 0.3 10^3/uL (0.5-4.7); ABSOLUTE MONOCYTES # (MANUAL) 0.1 10^3/uL (0.1-1.4); ABSOLUTE NEUTROPHILS# (MANUAL) 6.6 10^3/uL (1.7-8.2); BASOPHILS % (MANUAL) 0 % (0-2); EOSINOPHILS % (MANUAL) 0 % (0-6); LYMPHOCYTES % (MANUAL) 4 % (13-45); MONOCYTES % (MANUAL) 1 % (3-13); SEGMENTED NEUTROPHILS % (MAN) 95 % (42-78); TOTAL CELLS COUNTED 100
[2018-08-29 06:00] LABS: RBC MORPHOLOGY COMMENT NORMO-CYTIC/CHROMIC
[2018-08-29 06:03] LABS: PLATELET COMMENT DECREASED
[2018-08-29] MEDS: NAPROXEN 250 MG TABLET PO SCH (09:13)
[2018-08-29] MEDS: GUAIFENESIN 600 MG TABLET.SA PO SCH (09:13)
[2018-08-29] MEDS: GABAPENTIN 300 MG CAPSULE PO SCH (09:13)
[2018-08-29] MEDS: FAMOTIDINE INJ/PF 20 MG/2 ML SDV IV SCH (09:14)
[2018-08-29] MEDS: TIOTROPIUM BROMIDE DPI 5 CAP/KIT (18 MCG/CAP) IH SCH (09:14)
--- NOTE | 2018-08-29 09:26 | PDOC DISCHARGE SUMMARY ---
General - Admit/Disc Date/PCP Admission Date/Primary Care Provider: 08/27/18 15:33 Discharge Date: 08/29/18 - Discharge Diagnosis (1) Pneumonia Is this a current diagnosis for this admission?: Yes (2) SIRS (systemic inflammatory response syndrome) Is this a current diagnosis for this admission?: Yes (3) History of COPD Is this a current diagnosis for this admission?: Yes - Additional Information Discharge Diet: As Tolerated Discharge Activity: Activity As Tolerated, No Driving, Slowly Increase Activity Prescriptions: Gabapentin [Neurontin 300 mg Capsule] 300 mg PO Q12 30 Days #60 capsule Levofloxacin [Levaquin 750 mg Tablet] 750 mg PO DAILY 4 Days #10 tab Levofloxacin [Levaquin 750 mg Tablet] 750 mg PO DAILY 4 Days #4 tablet Prednisone 10 mg PO DAILY 3 Days #3 tab.ds.pk Salmeterol Xinafoate [Serevent Diskus 50 Mcg/Dose 28 Dose/Diskus] 50 mcg IH Q12 30 Days #1 each Tiotropium [place] [Spiriva Handihaler 5 Cap/Kit (18 Mcg/Cap)] 1 cap IH DAILY 30 Days #5 capsule Home Medications: Naproxen [Naprosyn] 500 mg PO Q12 08/27/18 Omeprazole 40 mg PO QAM 08/27/18 Gabapentin [Neurontin 300 mg Capsule] 300 mg PO Q12 30 Days #60 capsule Levofloxacin [Levaquin 750 mg Tablet] 750 mg PO DAILY 4 Days #10 tab 08/29/18 Levofloxacin [Levaquin 750 mg Tablet] 750 mg PO DAILY 4 Days #4 tablet 08/29/18 Prednisone 10 mg PO DAILY 3 Days #3 tab.ds.pk 08/29/18 Salmeterol Xinafoate [Serevent Diskus 50 Mcg/Dose 28 Dose/Diskus] 50 mcg IH Q12 30 Days #1 each 08/29/18 Tiotropium [place] [Spiriva Handihaler 5 Cap/Kit (18 Mcg/Cap)] 1 cap IH DAILY 30 Days #5 capsule 08/29/18 History of Present Illness History of Present Illness: ISHAN BAILEY is a 57 year old male past medical history of COPD, asthma, Gilbert syndrome. Patient presented to ED complaining of nausea, nonbilious nonbloody vomiting x4 since yesterday, productive cough and pleuritic chest pain. She was admitted here at [facility] on 05/21/2018 for community-acquired pneumonia for 2 days and was sent home. Patient is stated he was feeling better until a week ago that he started having similar symptoms. In ED he was found to be tachycardic, hypotensive, tachypneic, leukocytosis with bandemia. Patient was started on SIRS protocol start on IV antibiotics in hospital was consulted for admission. Hospital Course Hospital Course: (1) Pneumonia Significant improvement. Benign respiratory examination. Ambulatory and asymptomatic. Received 2 days of Vanco levo and Zosyn for presumptive hospital-acquired pneumonia. Switch to p.o. Levaquin complete total of 7 days. Outpatient PCP follow-up. Encouraged to return back if symptoms recurs. Prelim cultures negative on day of discharge. (2) SIRS (systemic inflammatory response syndrome) Likely secondary to pneumonia. Sepsis protocol was started. Admit to IMCU. Vitals remained within normal limits. Lactic acid 2.0. (3) History of COPD DuoNeb, BiPAP, steroids, long-acting beta agonist and long-acting antimuscarinic 's. Discharged on long-acting beta agonist, long-acting antimuscarinic's and 3 more days of p.o. steroids. Physical Exam Vital Signs: Temp Pulse Resp BP Pulse Ox 97.7 F 55 L 14 124/69 98 08/29/18 07:12 08/29/18 07:28 08/29/18 07:28 08/29/18 07:12 08/29/18 07:28 Intake & Output 08/28/18 08/29/18 08/30/18 06:59 06:59 06:59 Intake Total 2894 5684 350 Output Total 1050 Balance 2894 4634 350 Weight 77.5 kg 78 kg General appearance: PRESENT: no acute distress, well-developed, well-nourished Head exam: PRESENT: atraumatic, normocephalic Eye exam: PRESENT: conjunctiva pink, EOMI, PERRLA. ABSENT: scleral icterus Ear exam: PRESENT: normal external ear exam Mouth exam: PRESENT: moist, tongue midline Neck exam: ABSENT: carotid bruit, JVD, lymphadenopathy, thyromegaly Respiratory exam: PRESENT: clear to auscultation francisca. ABSENT: rales, rhonchi, wheezes Cardiovascular exam: PRESENT: RRR. ABSENT: diastolic murmur, rubs, systolic murmur Pulses: PRESENT: normal dorsalis pedis pul Vascular exam: PRESENT: normal capillary refill GI/Abdominal exam: PRESENT: normal bowel sounds, soft. ABSENT: distended, guarding, mass, organolmegaly, rebound, tenderness Rectal exam: PRESENT: deferred Extremities exam: PRESENT: full ROM. ABSENT: calf tenderness, clubbing, pedal edema Neurological exam: PRESENT: alert, awake, oriented to person, oriented to place , oriented to time, oriented to situation, CN II-XII grossly intact. ABSENT: motor sensory deficit Psychiatric exam: PRESENT: appropriate affect, normal mood. ABSENT: homicidal ideation, suicidal ideation Skin exam: PRESENT: dry, intact, warm. ABSENT: cyanosis, rash Results Laboratory Results: 08/29/18 05:08 08/29/18 05:08 08/28/18 08/28/18 08/29/18 11:35 17:45 05:08 WBC 6.9 RBC 3.71 L Hgb 11.6 L Hct 32.5 L MCV 88 MCH 31.1 MCHC 35.5 RDW 14.2 H Plt Count 82 L Seg Neutrophils % Not Reportable Lymphocytes % Not Reportable Monocytes % Not Reportable Eosinophils % Not Reportable Basophils % Not Reportable Absolute Neutrophils Not Reportable Absolute Lymphocytes Not Reportable Absolute Monocytes Not Reportable Absolute Eosinophils Not Reportable Absolute Basophils Not Reportable Sodium Potassium Chloride Carbon Dioxide Anion Gap BUN Creatinine Est GFR ( Amer) Est GFR (Non-Af Amer) Glucose Lactic Acid 4.5 H 3.8 H Calcium Total Bilirubin AST ALT Alkaline Phosphatase Total Protein Albumin 08/29/18 08/29/18 05:08 05:08 WBC RBC Hgb Hct MCV MCH MCHC RDW Plt Count Seg Neutrophils % Lymphocytes % Monocytes % Eosinophils % Basophils % Absolute Neutrophils Absolute Lymphocytes Absolute Monocytes Absolute Eosinophils Absolute Basophils Sodium 143.5 Potassium 3.6 Chloride 115 H Carbon Dioxide 18 L Anion Gap 11 BUN 11 Creatinine 0.82 Est GFR ( Amer) > 60 Est GFR (Non-Af Amer) > 60 Glucose 205 H Lactic Acid 2.0 Calcium 8.6 Total Bilirubin 1.6 H AST 18 ALT 13 L Alkaline Phosphatase 55 Total Protein 5.4 L Albumin 2.7 L 08/27/18 15:46 Clean Catch Midstream Urine Culture - Final NO GROWTH 2 DAYS Impressions: Chest X-Ray 08/27/18 14:16 IMPRESSION: In the appropriate clinical setting, findings are consistent with lobar pneumonia. Qualifiers - * PATIENT BEING DISCHARGED WITH ANY OF THE FOLLOWING DIAGNOSIS: No
[2018-08-29] MEDS ORDERED: GUAIFENESIN 600 MG TABLET.SA PO SCH (10:00)
[2018-08-29] MEDS ORDERED: IPRATROPIUM/ALBUTEROL 0.5-2.5 MG/3 ML AMPUL NEB PRN (10:00)
[2018-08-29] MEDS: LEVOFLOXACIN 750 MG/D5W RTU 750 MG/150 ML RTUPB IV SCH (10:02)
[2018-08-29 11:36] VITALS: BP 87/57
[2018-08-29] MEDS ORDERED: FAMOTIDINE 20 MG TABLET PO SCH (22:00)
== END 2018-08-29 12:14 | disposition home or self-care (01) | DRG 194 ==
LOC: ER 13:19 → EH 15:33 → 3S 17:12
PROVIDERS: ADMIT Internal Medicine; ATTEND Internal Medicine
PROC: 3E0F73Z Introduction of Anti-inflammatory into Respiratory Tract, Via Natural or Artificial Opening (ICD-10-PCS; principal; 2018-08-27)
PROC: 3E02340 Introduction of Influenza Vaccine into Muscle, Percutaneous Approach (ICD-10-PCS; 2018-08-29)
DX: J18.1 Lobar pneumonia, unspecified organism (principal); J44.0 Chronic obstructive pulmonary disease with (acute) lower respiratory infection; E80.4 Gilbert syndrome; I10 Essential (primary) hypertension; D69.6 Thrombocytopenia, unspecified; Z79.899 Other long term (current) drug therapy; Z90.49 Acquired absence of other specified parts of digestive tract; Z87.891 Personal history of nicotine dependence; Z80.3 Family history of malignant neoplasm of breast; Z80.7 Family history of other malignant neoplasms of lymphoid, hematopoietic and related tissues; Z84.89 Family history of other specified conditions
CPT/HCPCS: 36415; 71045; 80053; 81001; 82803; 83605; 84484; 85025; 85027; 85610; 87040; 87070; 87086; 87205; 90686; 93005; 93010; 94640; 96360; 99291; J1956; J2543; J2920; J3370; J3490; J7030; J7060; J7120; J7620; S0028

== ENCOUNTER → 2018-09-22 | Outpatient (CLI) | payer OTHER ==
--- NOTE | 2018-09-22 14:23 | RADIOLOGY REPORT (SQ) ---
EXAM DESCRIPTION: CHEST PA/LATERAL COMPLETED DATE/TIME: 09/22/2018 2:09 pm REASON FOR STUDY: OTHER PNEUMONIA, UNSPECIFIED ORGANISM COMPARISON: 08/27/2018 and 06/22/2018. EXAM PARAMETERS: NUMBER OF VIEWS: two views TECHNIQUE: Digital Frontal and Lateral radiographic views of the chest acquired. RADIATION DOSE: NA LIMITATIONS: none FINDINGS: LUNGS AND PLEURA: No opacities, masses or pneumothorax. No pleural effusion. MEDIASTINUM AND HILAR STRUCTURES: No masses or contour abnormalities. HEART AND VASCULAR STRUCTURES: Heart normal size. No evidence for failure. BONES: No acute findings. HARDWARE: None in the chest. OTHER: No other significant finding. IMPRESSION: NO SIGNIFICANT RADIOGRAPHIC FINDING IN THE CHEST. TECHNICAL DOCUMENTATION: JOB ID: [id number] [employer]- All Rights Reserved Reading location - IP/workstation name: [email or web address]
== END ==
LOC: CCC 13:57
DX: J18.8 Other pneumonia, unspecified organism (principal)
CPT/HCPCS: 71046

== ENCOUNTER → 2018-10-28 | Outpatient (CLI) | payer OTHER ==
--- NOTE | 2018-10-28 17:11 | RADIOLOGY REPORT (SQ) ---
EXAM DESCRIPTION: CHEST PA/LATERAL COMPLETED DATE/TIME: 10/28/2018 4:57 pm REASON FOR STUDY: J44.9, COPD COMPARISON: 09/22/2018 EXAM PARAMETERS: NUMBER OF VIEWS: two views TECHNIQUE: Digital Frontal and Lateral radiographic views of the chest acquired. RADIATION DOSE: NA LIMITATIONS: none FINDINGS: LUNGS AND PLEURA: No opacities, masses or pneumothorax. No pleural effusion. MEDIASTINUM AND HILAR STRUCTURES: No masses or contour abnormalities. HEART AND VASCULAR STRUCTURES: Heart normal size. No evidence for failure. BONES: No acute findings. HARDWARE: None in the chest. OTHER: No other significant finding. IMPRESSION: NO SIGNIFICANT RADIOGRAPHIC FINDING IN THE CHEST. TECHNICAL DOCUMENTATION: JOB ID: [id number] [employer]- All Rights Reserved Reading location - IP/workstation name: [email or web address]
[2018-10-28 17:55] LABS: ABSOLUTE EOSINOPHILS # (AUTO) 0.2 10^3/uL (0.0-0.6); ABSOLUTE LYMPHOCYTES (AUTO) 1.2 10^3/uL (0.5-4.7); ABSOLUTE MONOCYTES (AUTO) 0.4 10^3/uL (0.1-1.4); ABSOLUTE NEUT (AUTO) 4.5 10^3/uL (1.7-8.2); BASOPHILS % (AUTO) 0.8 % (0-2); EOSINOPHILS % (AUTO) 2.8 % (0-6); HEMATOCRIT 37.3 % (37.9-51.0); HEMOGLOBIN 13.4 g/dL (13.5-17.0); LYMPHOCYTES % (AUTO) 18.6 % (13-45); MEAN CORPUSCULAR HEMOGLOBIN 30.7 pg (27.0-33.4); MEAN CORPUSCULAR VOLUME 85 fl (80-97); PLATELET COUNT 125 10^3/uL (150-450); RED BLOOD COUNT 4.38 10^6/uL (4.35-5.55); RED CELL DISTRIBUTION WIDTH 14.6 % (11.5-14.0); SEGMENTED NEUTROPHILS % (AUTO) 71.8 % (42-78); TOTAL CELLS COUNTED % (AUTO) 100 %; WHITE BLOOD COUNT 6.2 10^3/uL (4.0-10.5)
== END ==
LOC: OD 16:25
DX: J44.9 Chronic obstructive pulmonary disease, unspecified (principal)
CPT/HCPCS: 36415; 71046; 85025

== ENCOUNTER 2019-02-28 09:49 | Emergency (ER) | payer OTHER ==
--- NOTE | 2019-02-28 10:14 | ER Document Report ---
ED Medical Screen (RME) - General Chief Complaint: Fever Stated Complaint: VOMITING Time Seen by Provider: 02/28/19 10:07 Primary Care Provider: SHIRLENE RAHMAN [Primary Care Provider] - Follow up as needed Mode of Arrival: Ambulatory Information source: Patient Notes: 58-year-old male presented to ED for complaint of fever cough sore throat nausea and vomiting. He states he had a fever of 105 last night and took Tylenol. He states he went to the urgent care this morning his temperature was 103 he had already taken Tylenol again and by the time he came to the emergency room his temperature is 98.6. He states he is vomited 5 times since last night none since 5:00 this morning. He states he has a sore throat headache cough congestion and is continues to be nauseated. Patient is alert oriented respirations regular and unlabored lungs are clear at this time. I have greeted and performed a rapid initial assessment of this patient. A comprehensive ED assessment and evaluation of the patient, analysis of test results and completion of medical decision making process will be conducted by an additional ED providers. Dictation of this chart was performed using voice recognition software; therefore, there may be some unintended grammatical errors. TRAVEL OUTSIDE OF THE [place] IN LAST 30 DAYS: No - Related Data Allergies/Adverse Reactions: No Known Allergies Allergy (Verified 02/28/19 09:51) Past Medical History - Social History Chew tobacco use (# tins/day): No Frequency of alcohol use: None Drug Abuse: None Pulmonary Medical History: Reports: Hx Asthma, Hx COPD Renal/ Medical History: Denies: Hx Peritoneal Dialysis Psychiatric Medical History: Denies: Hx Depression Past Surgical History: Reports: Hx Cholecystectomy Physical Exam - Vital signs Vitals: Temp Pulse Resp BP Pulse Ox 98.1 F 90 16 122/78 97 02/28/19 09:53 02/28/19 09:53 02/28/19 09:53 02/28/19 09:53 02/28/19 09:53 Course - Vital Signs Vital signs: Temp Pulse Resp BP Pulse Ox 98.4 F 90 16 122/78 97 02/28/19 10:09 02/28/19 09:53 02/28/19 09:53 02/28/19 09:53 02/28/19 09:53 Doctor's Discharge - Discharge Referrals: [facility] [Primary Care Provider] - Follow up as needed
[2019-02-28 10:37] LABS: ABSOLUTE EOSINOPHILS # (AUTO) 0.1 10^3/uL (0.0-0.6); ABSOLUTE LYMPHOCYTES (AUTO) 0.9 10^3/uL (0.5-4.7); ABSOLUTE MONOCYTES (AUTO) 0.8 10^3/uL (0.1-1.4); ABSOLUTE NEUT (AUTO) 12.9 10^3/uL (1.7-8.2); BASOPHILS % (AUTO) 0.3 % (0-2); EOSINOPHILS % (AUTO) 0.4 % (0-6); HEMATOCRIT 43.9 % (37.9-51.0); HEMOGLOBIN 15.4 g/dL (13.5-17.0); LYMPHOCYTES % (AUTO) 5.9 % (13-45); MEAN CORPUSCULAR VOLUME 86 fl (80-97); MONOCYTES % (AUTO) 5.4 % (3-13); PLATELET COUNT 121 10^3/uL (150-450); RED BLOOD COUNT 5.12 10^6/uL (4.35-5.55); RED CELL DISTRIBUTION WIDTH 14.6 % (11.5-14.0); TOTAL CELLS COUNTED % (AUTO) 100 %; WHITE BLOOD COUNT 14.6 10^3/uL (4.0-10.5)
[2019-02-28 10:41] LABS: APPEARANCE,URINE CLEAR; BILIRUBIN,URINE NEGATIVE (NEGATIVE); COLOR,URINE YELLOW; GLUCOSE, URINE NEGATIVE (NEGATIVE); KETONES,URINE NEGATIVE (NEGATIVE); LEUKOCYTE ESTERASE,URINE NEGATIVE (NEGATIVE); NITRITE,URINE NEGATIVE (NEGATIVE); PROTEIN,URINE NEGATIVE (NEGATIVE); URINE SPECIFIC GRAVITY 1.024
[2019-02-28] MEDS ORDERED: ONDANSETRON HCL INJ/PF 4 MG/2 ML SDV IV ONE (10:45)
[2019-02-28] MEDS ORDERED: NORMAL SALINE 1000 ML 1,000 ML IV ONE (10:45)
[2019-02-28] MEDS ORDERED: KETOROLAC TROMETHAMINE INJ/PF 30 MG/1 ML SDV IV ONE (10:45)
[2019-02-28 10:46] LABS: A TYPE INFLUENZA AG NEGATIVE (NEGATIVE); B INFLUENZA AG NEGATIVE (NEGATIVE)
[2019-02-28 10:54] LABS: ALANINE AMINOTRANSFERASE 26 U/L (21-72); ALBUMIN 4.4 g/dL (3.5-5.0); ALKALINE PHOSPHATASE 90 U/L (38-126); ANION GAP 11 (5-19); ASPARTATE AMINO TRANSFERASE 30 U/L (17-59); BILIRUBIN,DIRECT 0.5 mg/dL (0.0-0.4); BILIRUBIN,TOTAL 6.4 mg/dL (0.2-1.3); BLOOD UREA NITROGEN 12 mg/dL (7-20); CALCIUM 9.2 mg/dL (8.4-10.2); CARBON DIOXIDE 30 mmol/L (22-30); CHLORIDE 102 mmol/L (98-107); GLUCOSE 114 mg/dL (75-110); POTASSIUM 3.6 mmol/L (3.6-5.0); SODIUM 142.8 mmol/L (137-145); TOTAL PROTEIN 7.5 g/dL (6.3-8.2)
[2019-02-28 12:28] VITALS: BP 115/61
--- NOTE | 2019-02-28 12:33 | ER Document Report ---
ED General - General Chief Complaint: Fever Stated Complaint: VOMITING Time Seen by Provider: 02/28/19 10:07 [facility] - Follow up as needed Mode of Arrival: Ambulatory TRAVEL OUTSIDE OF THE [place] IN LAST 30 DAYS: No - HPI Notes: Patient is a 58-year-old male who presents emergency department for evaluation. He was sent in by his physician at the [facility]. He had a fever starting last night. He has had 5-6 episodes of nonbloody, nonbilious emesis. He has a sore throat. He has minimal cough. He complains of pain in his ear as well as aching all over. He denies feeling short of breath. He is still urinating. Continues to complain of some nausea. - Related Data Allergies/Adverse Reactions: No Known Allergies Allergy (Verified 02/28/19 09:51) Past Medical History - General Information source: Patient - Social History Smoking Status: Former Smoker Chew tobacco use (# tins/day): No Frequency of alcohol use: None Drug Abuse: None Family History: Reviewed & Not Pertinent, Other - Lymphoma, breast cancer and hepatic cirrhosis Patient has suicidal ideation: No Patient has homicidal ideation: No Pulmonary Medical History: Reports: Hx Asthma, Hx COPD Renal/ Medical History: Denies: Hx Peritoneal Dialysis Psychiatric Medical History: Denies: Hx Depression Past Surgical History: Reports: Hx Cholecystectomy Review of Systems - Review of Systems Constitutional: See HPI EENT: See HPI Cardiovascular: No symptoms reported Respiratory: See HPI Gastrointestinal: See HPI Genitourinary: No symptoms reported Musculoskeletal: No symptoms reported Skin: No symptoms reported Neurological/Psychological: No symptoms reported Physical Exam - Vital signs Vitals: Temp Pulse Resp BP Pulse Ox 98.1 F 90 16 122/78 97 02/28/19 09:53 02/28/19 09:53 02/28/19 09:53 02/28/19 09:53 02/28/19 09:53 - Notes Notes: Vital signs reviewed, please refer to chart. Head is normocephalic, atraumatic. Pupils equal round, reactive to light. Right TM is markedly erythematous with purulent effusion. Left TM is pearly luke with good light reflex. Oral mucosa is moist, pharynx is mildly erythematous without exudate. Neck is supple without meningismus. Heart is regular rate and rhythm. Lungs are clear to auscultation bilaterally. Abdomen is soft, nontender, normoactive bowel sounds throughout. Extremities without cyanosis, clubbing. Posterior calves are nontender. Peripheral pulses are equal. Skin is warm and dry. Patient is awake, alert, oriented x3. Cranial nerves II - XII are grossly intact without focal neurological deficits. Strength is plus 5 out of 5 bilateral lower extremities. Sensation is intact. Reflexes symmetrical. Intact [id number], rapid altering movements, [id number]. Course - Re-evaluation Re-evalutation: 02/28/19 12:31 Patient presents emergency department for evaluation. On arrival here he was afebrile. His oxygenation was excellent, particularly given that this is a former smoker. His lung exam shows no signs of consolidation. He had initial laboratory investigations as ordered through triage. He was given IV fluids as well as Zofran. Laboratory investigation showed leukocytosis but were otherwise unremarkable. He does have an elevated bilirubin, but has a history of [place] disease. Negative flu. Negative strep. He is no longer vomiting. Feels somewhat improved. At this point I will get and treat him for otitis media. He has had recurrent ear infections on that side. Again treated with Omnicef. He is to follow-up with primary care, return to the ED with worsening or new concerning symptoms of any sort. 02/28/19 12:32 - Vital Signs Vital signs: Temp Pulse Resp BP Pulse Ox 98.4 F 90 16 122/78 97 02/28/19 10:09 02/28/19 09:53 02/28/19 09:53 02/28/19 09:53 02/28/19 09:53 - Laboratory Result Diagrams: 02/28/19 10:25 02/28/19 10:25 Laboratory results interpreted by me: 02/28/19 02/28/19 02/28/19 10:05 10:25 10:25 WBC 14.6 H RDW 14.6 H Plt Count 121 L Seg Neutrophils % 88.0 H Lymphocytes % 5.9 L Absolute Neutrophils 12.9 H Glucose 114 H Total Bilirubin 6.4 H Direct Bilirubin 0.5 H Urine Blood SMALL H Urine Urobilinogen 2.0 H Discharge - Discharge Clinical Impression: Right otitis media with effusion, Acute viral syndrome Nausea and vomiting Qualifiers: Vomiting Intractability: non-intractable Condition: Stable Disposition: HOME, SELF-CARE Instructions: Antinausea Medication ([facility]), Fever ([facility]), Otitis Media ([facility]) Additional Instructions: Take all the antibiotic as prescribed until it is gone. Zofran as needed for nausea and vomiting. Stay well-hydrated. Tylenol as needed for fever. Follow- up with your doctor this week. Return to the emergency department with worsening or new concerning symptoms. Referrals: [facility] [Primary Care Provider] - Follow up as needed
== END 2019-02-28 12:45 | disposition home or self-care (01) ==
LOC: ER 09:49
DX: H65.91 Unspecified nonsuppurative otitis media, right ear (principal); B34.9 Viral infection, unspecified; R50.9 Fever, unspecified; R11.10 Vomiting, unspecified; J44.9 Chronic obstructive pulmonary disease, unspecified; Z90.49 Acquired absence of other specified parts of digestive tract
CPT/HCPCS: 99283; 96361; 96374; 96375; 36415; 87070; 87086; 87880; 85025; 80053; 81001; 87804; J1885; J2405; J7030

== ENCOUNTER → 2019-03-09 | Outpatient (CLI) | payer OTHER ==
[2019-03-09 09:34] LABS: ABSOLUTE EOSINOPHILS # (AUTO) 0.1 10^3/uL (0.0-0.6); ABSOLUTE LYMPHOCYTES (AUTO) 1.1 10^3/uL (0.5-4.7); ABSOLUTE MONOCYTES (AUTO) 0.3 10^3/uL (0.1-1.4); ABSOLUTE NEUT (AUTO) 5.6 10^3/uL (1.7-8.2); BASOPHILS % (AUTO) 0.7 % (0-2); EOSINOPHILS % (AUTO) 1.5 % (0-6); HEMATOCRIT 41.2 % (37.9-51.0); HEMOGLOBIN 14.5 g/dL (13.5-17.0); LYMPHOCYTES % (AUTO) 15.6 % (13-45); MEAN CORPUSCULAR HEMOGLOBIN 30.2 pg (27.0-33.4); MEAN CORPUSCULAR HGB CONC 35.1 g/dL (32.0-36.0); MEAN CORPUSCULAR VOLUME 86 fl (80-97); MONOCYTES % (AUTO) 4.1 % (3-13); PLATELET COUNT 155 10^3/uL (150-450); RED BLOOD COUNT 4.79 10^6/uL (4.35-5.55); RED CELL DISTRIBUTION WIDTH 14.5 % (11.5-14.0); SEGMENTED NEUTROPHILS % (AUTO) 78.1 % (42-78); TOTAL CELLS COUNTED % (AUTO) 100 %; WHITE BLOOD COUNT 7.2 10^3/uL (4.0-10.5)
[2019-03-09 10:00] LABS: ALANINE AMINOTRANSFERASE 15 U/L (21-72); ALBUMIN 3.8 g/dL (3.5-5.0); ALKALINE PHOSPHATASE 76 U/L (38-126); ANION GAP 8 (5-19); ASPARTATE AMINO TRANSFERASE 19 U/L (17-59); BILIRUBIN,DIRECT 0.4 mg/dL (0.0-0.4); BILIRUBIN,TOTAL 2.1 mg/dL (0.2-1.3); BLOOD UREA NITROGEN 5 mg/dL (7-20); CALCIUM 9.3 mg/dL (8.4-10.2); CARBON DIOXIDE 28 mmol/L (22-30); CHLORIDE 106 mmol/L (98-107); GLUCOSE 122 mg/dL (75-110); POTASSIUM 3.4 mmol/L (3.6-5.0); SODIUM 141.6 mmol/L (137-145); TOTAL PROTEIN 6.6 g/dL (6.3-8.2)
== END ==
LOC: CCC 08:27
DX: R17 Unspecified jaundice (principal)
CPT/HCPCS: 36415; 80048; 80076; 85025

== ENCOUNTER 2019-06-13 09:56 | Emergency (ER) | payer OTHER ==
--- NOTE | 2019-06-13 11:28 | ER Document Report ---
ED Medical Screen (RME) - General Chief Complaint: Abdominal Pain Stated Complaint: VOMITING Time Seen by Provider: 06/13/19 11:23 Primary Care Provider: SHIRLENE RAHMAN [Primary Care Provider] - Follow up as needed Notes: 58-year-old male with COPD presents to the emergency department with right lower quadrant abdominal pain x1 week. Patient complained of anorexia, nausea, and blood-tinged vomiting prior to arrival. Denies fevers or chills, denies urinary retention, denies acute shortness of breath or chest pain. EXAM: Well-appearing in no acute distress. Lungs clear to auscultation in all cobian, regular rate cardiac rhythm, abdominal exam limited in triage room but patient had some right lower quadrant tenderness to palpation while he was sitting I have greeted and performed a rapid initial assessment of this patient. A comprehensive ED assessment and evaluation of the patient, analysis of test results and completion of medical decision making process will be conducted by an additional ED providers. TRAVEL OUTSIDE OF THE [place] IN LAST 30 DAYS: No - Related Data Allergies/Adverse Reactions: No Known Allergies Allergy (Verified 02/28/19 09:51) Past Medical History Pulmonary Medical History: Reports: Hx Asthma, Hx COPD Renal/ Medical History: Denies: Hx Peritoneal Dialysis Psychiatric Medical History: Denies: Hx Depression Past Surgical History: Reports: Hx Cholecystectomy Physical Exam - Vital signs Vitals: Temp Pulse Resp BP Pulse Ox 98.5 F 86 16 107/77 96 06/13/19 10:02 06/13/19 10:02 06/13/19 10:02 06/13/19 10:02 06/13/19 10:02 Course - Vital Signs Vital signs: Temp Pulse Resp BP Pulse Ox 98.5 F 86 16 107/77 96 06/13/19 10:02 06/13/19 10:02 06/13/19 10:02 06/13/19 10:02 06/13/19 10:02 Doctor's Discharge - Discharge Referrals: SHIRLENE RAHMAN [Primary Care Provider] - Follow up as needed
[2019-06-13 11:54] LABS: ABSOLUTE LYMPHOCYTES (AUTO) 0.7 10^3/uL (0.5-4.7); ABSOLUTE MONOCYTES (AUTO) 0.4 10^3/uL (0.1-1.4); ABSOLUTE NEUT (AUTO) 6.9 10^3/uL (1.7-8.2); BASOPHILS % (AUTO) 0.3 % (0-2); EOSINOPHILS % (AUTO) 0.2 % (0-6); HEMATOCRIT 41.4 % (37.9-51.0); HEMOGLOBIN 14.7 g/dL (13.5-17.0); LYMPHOCYTES % (AUTO) 8.7 % (13-45); MEAN CORPUSCULAR HEMOGLOBIN 30.4 pg (27.0-33.4); MEAN CORPUSCULAR HGB CONC 35.5 g/dL (32.0-36.0); MEAN CORPUSCULAR VOLUME 86 fl (80-97); MONOCYTES % (AUTO) 4.7 % (3-13); PLATELET COUNT 133 10^3/uL (150-450); RED BLOOD COUNT 4.83 10^6/uL (4.35-5.55); RED CELL DISTRIBUTION WIDTH 14.5 % (11.5-14.0); SEGMENTED NEUTROPHILS % (AUTO) 86.1 % (42-78); TOTAL CELLS COUNTED % (AUTO) 100 %
[2019-06-13 12:00] LABS: APPEARANCE,URINE CLEAR; BILIRUBIN,URINE NEGATIVE (NEGATIVE); COLOR,URINE YELLOW; GLUCOSE, URINE NEGATIVE (NEGATIVE); KETONES,URINE NEGATIVE (NEGATIVE); LEUKOCYTE ESTERASE,URINE NEGATIVE (NEGATIVE); NITRITE,URINE NEGATIVE (NEGATIVE); PROTEIN,URINE NEGATIVE (NEGATIVE); URINE SPECIFIC GRAVITY 1.013; UROBILINOGEN,URINE NEGATIVE mg/dL (<2.0)
[2019-06-13 12:16] LABS: ALBUMIN 4.3 g/dL (3.5-5.0); ALKALINE PHOSPHATASE 78 U/L (38-126); ANION GAP 9 (5-19); ASPARTATE AMINO TRANSFERASE 28 U/L (17-59); BILIRUBIN,DIRECT 0.2 mg/dL (0.0-0.4); BILIRUBIN,TOTAL 3.1 mg/dL (0.2-1.3); BLOOD UREA NITROGEN 10 mg/dL (7-20); CALCIUM 9.8 mg/dL (8.4-10.2); CARBON DIOXIDE 29 mmol/L (22-30); CHLORIDE 104 mmol/L (98-107); GLUCOSE 109 mg/dL (75-110); POTASSIUM 4.2 mmol/L (3.6-5.0); TOTAL PROTEIN 7.3 g/dL (6.3-8.2)
--- NOTE | 2019-06-13 14:05 | RADIOLOGY REPORT (SQ) ---
EXAM DESCRIPTION: CT ABD/PELVIS WITH IV ONLY COMPLETED DATE/TIME: 06/13/2019 1:40 pm REASON FOR STUDY: RLQ abd pain COMPARISON: 05/20/2018 TECHNIQUE: CT scan of the abdomen and pelvis performed using helical scanning technique with dynamic intravenous contrast injection. No oral contrast. Images reviewed with lung, soft tissue, and bone windows. Reconstructed coronal and sagittal MPR images reviewed. Delayed images for evaluation of the urinary system also acquired. All images stored on PACS. All CT scanners at this facility use dose modulation, iterative reconstruction, and/or weight based d osing when appropriate to reduce radiation dose to as low as reasonably achievable (ALARA). [facility]: Dose Right [facility]: CareDose [facility]: Dose Right [facility]: Teradose 4D [facility]: 2080 Media CONTRAST TYPE AND DOSE: contrast/concentration: Isovue 350.00 mg/ml; Total Contrast Delivered: 81.0 ml; Total Saline Delivered: 44.0 ml RENAL FUNCTION: GFR > 60. RADIATION DOSE: CT Rad equipment meets quality standard of care and radiation dose reduction techniq ues were employed. CTDIvol: 6.3 - 8.5 mGy. DLP: 891 mGy-cm.. LIMITATIONS: None. FINDINGS: LOWER CHEST: No significant findings. No nodules or infiltrates. LIVER: Normal size. No masses. No dilated ducts. SPLEEN: Normal size. No focal lesions. PANCREAS: No masses. No significant calcifications. No adjacent inflammation or peripancreatic fluid collections. Pancreatic duct not dilated. GALLBLADDER: Surgically absent. ADRENAL GLANDS: No significant masses or asymmetry. RIGHT KIDNEY AND URETER: No solid masses. No significant calcifications. No hydronephrosis or hyd roureter. LEFT KIDNEY AND URETER: No solid masses. No significant calcifications. No hydronephrosis or hydr oureter. AORTA AND VESSELS: No aneurysm. No dissection. Renal arteries, SMA, celiac without stenosis. RETROPERITONEUM: No retroperitoneal adenopathy, hemorrhage or masses. BOWEL AND PERITONEAL CAVITY: No masses or inflammatory changes. No free fluid or peritoneal masses. APPENDIX: Normal. PELVIS: No mass. No free fluid. Normal bladder. ABDOMINAL WALL: No masses. No hernias. BONES: No significant or acute findings. OTHER: No other significant finding. IMPRESSION: No CT findings of the abdomen or pelvis to explain acute right lower quadrant abdominal pain. Normal appendix. No evidence of urinary tract calculus or hydronephrosis. TECHNICAL DOCUMENTATION: JOB ID: [id number] Quality ID # [id number]: Final reports with documentation of one or more dose reduction techniques (e.g., Au tomated exposure control, adjustment of the mA and/or kV according to patient size, use of iterative reconstruction technique) 2010 [employer]- All Rights Reserved Reading location - IP/workstation name: [email or web address]
--- NOTE | 2019-06-13 14:47 | ER Document Report ---
ED General - General Chief Complaint: Abdominal Pain Stated Complaint: VOMITING Time Seen by Provider: 06/13/19 11:23 [facility]NO [facility]AL MD[facility] - Follow up as needed Mode of Arrival: Ambulatory Information source: Patient TRAVEL OUTSIDE OF THE [place] IN LAST 30 DAYS: No - HPI Notes: Patient presents with approximately 2 weeks of right lower quadrant abdominal pain. He states it is intermittent in intensity but is constantly present. He states nothing makes it better or worse. He states it does radiate to his back. It is sharp. No testicle or penis pain. He does have some discomfort with urination. No problems with bowel movements. He states he has had some vomiting. He states he has had a previous cholecystectomy but no other abdominal surgeries. Pain is been moderate. No fevers or chills. - Related Data Allergies/Adverse Reactions: No Known Allergies Allergy (Verified 02/28/19 09:51) Past Medical History - General Information source: Patient - Social History Smoking Status: Former Smoker Chew tobacco use (# tins/day): No Frequency of alcohol use: None Drug Abuse: None Family History: Reviewed & Not Pertinent, Other - Lymphoma, breast cancer and hepatic cirrhosis Patient has suicidal ideation: No Patient has homicidal ideation: No Pulmonary Medical History: Reports: Hx Asthma, Hx COPD Renal/ Medical History: Denies: Hx Peritoneal Dialysis Psychiatric Medical History: Denies: Hx Depression Past Surgical History: Reports: Hx Cholecystectomy Review of Systems - Review of Systems Constitutional: denies: Chills, Fever Cardiovascular: denies: Chest pain, Dyspnea Respiratory: denies: Cough, Short of breath -: Yes All other systems reviewed and negative Physical Exam - Vital signs Vitals: Temp Pulse Resp BP Pulse Ox 98.5 F 86 16 107/77 96 06/13/19 10:02 06/13/19 10:02 06/13/19 10:02 06/13/19 10:02 06/13/19 10:02 Interpretation: Normal - General General appearance: Appears well, Alert - HEENT Head: Normocephalic, Atraumatic Eyes: Normal Pupils: PERRL - Respiratory Respiratory status: No respiratory distress Chest status: Nontender Breath sounds: Normal Chest palpation: Normal - Cardiovascular Rhythm: Regular Heart sounds: Normal auscultation Murmur: No - Abdominal Inspection: Normal Distension: No distension Bowel sounds: Normal Tenderness: Tender - Mild bilateral lower quadrant tenderness to palpation. No surgical abdominal signs. Organomegaly: No organomegaly - Back Back: Normal, Nontender - Extremities General upper extremity: Normal inspection, Nontender, Normal color, Normal ROM, Normal temperature General lower extremity: Normal inspection, Nontender, Normal color, Normal ROM, Normal temperature, Normal weight bearing. No: Aroldo's sign - Neurological Neuro grossly intact: Yes Cognition: Normal Orientation: AAOx4 [place] Coma Scale Eye Opening: Spontaneous [place] Coma Scale Verbal: Oriented [place] Coma Scale Motor: Obeys Commands [place] Coma Scale Total: 15 Speech: Normal Motor strength normal: LUE, RUE, LLE, RLE Sensory: Normal - Psychological Associated symptoms: Normal affect, Normal mood - Skin Skin Temperature: Warm Skin Moisture: Dry Skin Color: Normal Course - Vital Signs Vital signs: Temp Pulse Resp BP Pulse Ox 97.6 F 51 L 20 105/66 98 06/13/19 14:25 06/13/19 14:25 06/13/19 14:25 06/13/19 14:25 06/13/19 14:25 - Laboratory Result Diagrams: 06/13/19 11:35 06/13/19 11:35 Laboratory results interpreted by me: 06/13/19 06/13/19 11:35 11:35 RDW 14.5 H Plt Count 133 L Lymph % (Auto) 8.7 L Seg Neutrophils % 86.1 H Total Bilirubin 3.1 H - Diagnostic Test Radiology reviewed: Image reviewed, Reports reviewed Discharge - Discharge Clinical Impression: Right lower quadrant abdominal pain Condition: Stable Disposition: HOME, SELF-CARE Instructions: Abdominal Pain ([facility]) Additional Instructions: Please call your doctor first thing in the morning to arrange for a recheck Prescriptions: Tramadol HCl [Ultram 50 mg Tablet] 50 mg PO Q6 3 Days #12 tab Referrals: [facility] [NO LOCAL MD] - Follow up in 3-5 days
[2019-06-13 15:47] VITALS: BP 143/87
== END 2019-06-13 15:48 | disposition home or self-care (01) ==
LOC: ER 09:56
DX: R10.31 Right lower quadrant pain (principal); R39.9 Unspecified symptoms and signs involving the genitourinary system; R10.813 Right lower quadrant abdominal tenderness; R10.814 Left lower quadrant abdominal tenderness; R11.10 Vomiting, unspecified; J44.9 Chronic obstructive pulmonary disease, unspecified; Z90.49 Acquired absence of other specified parts of digestive tract; Z87.891 Personal history of nicotine dependence
CPT/HCPCS: 36415; 74177; 80053; 81001; 83690; 85025; 99284

== ENCOUNTER 2019-11-19 11:48 | Emergency (ER) | payer SELFPAY ==
[2019-11-19] MEDS ORDERED: ONDANSETRON 4 MG TAB.RAPDIS PO ONE (12:06)
--- NOTE | 2019-11-19 12:06 | ER Document Report ---
ED Medical Screen (RME) - General Chief Complaint: Diarrhea Stated Complaint: VOMIT, DIARRHEA, HEADACHE Time Seen by Provider: 11/19/19 12:03 Notes: 59 y/o male presents with 1 week history of diarrhea, nausea/vomiting, generalized abdominal pain, productive cough with green sputum. Pt states seen at doctor's one week ago and diagnosed with ear infection and placed on Augmentin. Abd soft, nontender. Lungs clear to auscultation. Tachycardic. I have greeted and performed a rapid initial assessment of this patient. A comprehensive ED assessment and evaluation of the patient, analysis of test results and completion of the medical decision making process with be conducted by additional ED providers. TRAVEL OUTSIDE OF THE [place] IN LAST 30 DAYS: No - Related Data Allergies/Adverse Reactions: No Known Allergies Allergy (Verified 11/19/19 12:01) Past Medical History - Social History Chew tobacco use (# tins/day): No Frequency of alcohol use: None Drug Abuse: None Pulmonary Medical History: Reports: Hx Asthma, Hx COPD Renal/ Medical History: Denies: Hx Peritoneal Dialysis Psychiatric Medical History: Denies: Hx Depression Past Surgical History: Reports: Hx Cholecystectomy Physical Exam - Vital signs Vitals: Temp Pulse Resp BP Pulse Ox 98.4 F 116 H 18 107/73 97 11/19/19 11:59 11/19/19 11:59 11/19/19 11:59 11/19/19 11:59 11/19/19 11:59 Course - Vital Signs Vital signs: Temp Pulse Resp BP Pulse Ox 98.4 F 116 H 18 107/73 97 11/19/19 11:59 11/19/19 11:59 11/19/19 11:59 11/19/19 11:59 11/19/19 11:59
[2019-11-19 12:52] LABS: ABSOLUTE LYMPHOCYTES (AUTO) 0.9 10^3/uL (0.5-4.7); ABSOLUTE MONOCYTES (AUTO) 0.6 10^3/uL (0.1-1.4); ABSOLUTE NEUT (AUTO) 13.5 10^3/uL (1.7-8.2); BASOPHILS % (AUTO) 0.2 % (0-2); EOSINOPHILS % (AUTO) 0.3 % (0-6); HEMATOCRIT 44.4 % (37.9-51.0); HEMOGLOBIN 15.7 g/dL (13.5-17.0); LYMPHOCYTES % (AUTO) 5.8 % (13-45); MEAN CORPUSCULAR HEMOGLOBIN 30.7 pg (27.0-33.4); MEAN CORPUSCULAR HGB CONC 35.3 g/dL (32.0-36.0); MEAN CORPUSCULAR VOLUME 87 fl (80-97); MONOCYTES % (AUTO) 3.8 % (3-13); PLATELET COUNT 180 10^3/uL (150-450); RED BLOOD COUNT 5.09 10^6/uL (4.35-5.55); RED CELL DISTRIBUTION WIDTH 14.4 % (11.5-14.0); SEGMENTED NEUTROPHILS % (AUTO) 89.9 % (42-78); TOTAL CELLS COUNTED % (AUTO) 100 %
[2019-11-19 13:03] LABS: A TYPE INFLUENZA AG NEGATIVE (NEGATIVE); B INFLUENZA AG NEGATIVE (NEGATIVE)
[2019-11-19 13:07] LABS: ALBUMIN 4.1 g/dL (3.5-5.0); ALKALINE PHOSPHATASE 77 U/L (38-126); ANION GAP 10 (5-19); ASPARTATE AMINO TRANSFERASE 28 U/L (17-59); BILIRUBIN,DIRECT 0.3 mg/dL (0.0-0.4); BILIRUBIN,TOTAL 5.1 mg/dL (0.2-1.3); BLOOD UREA NITROGEN 9 mg/dL (7-20); CARBON DIOXIDE 29 mmol/L (22-30); CHLORIDE 99 mmol/L (98-107); GLUCOSE 115 mg/dL (75-110); POTASSIUM 3.8 mmol/L (3.6-5.0); TOTAL PROTEIN 7.8 g/dL (6.3-8.2)
[2019-11-19] MEDS ORDERED: NORMAL SALINE 1000 ML 1,000 ML IV ONE (13:15)
--- NOTE | 2019-11-19 13:20 | ER Document Report ---
ED General - General Chief Complaint: Diarrhea Stated Complaint: VOMIT, DIARRHEA, HEADACHE Time Seen by Provider: 11/19/19 12:03 Notes: Patient is a 59-year-old white male with a past medical history significant for Gilbert's disease who presents to the emergency department with a chief complaint of nausea vomiting and diarrhea for the past 2 weeks. He states his was sick with similar symptoms just prior to him. He reports that his has resolved spontaneously with no treatment. He states that his symptoms seem to be lingering and he feels that over the past few days they have actually worsened. He was seen last week by his doctor who prescribed Augmentin for an ear infection. He states he finished a course of Augmentin but his symptoms overall have not improved. He admits to an associated productive cough. States he also has some generalized abdominal discomfort. Denies any urinary complaints, back pain, fever. He admits to some chills at night. Denies any recent travel, any known exposure to potentially contaminated food or water sources, antibiotic administration prior to the onset of symptoms or any hospi talizations or institutionalizations. TRAVEL OUTSIDE OF THE [place] IN LAST 30 DAYS: No - Related Data Allergies/Adverse Reactions: No Known Allergies Allergy (Verified 11/19/19 12:01) Past Medical History - Social History Smoking Status: Current Every Day Smoker Chew tobacco use (# tins/day): No Frequency of alcohol use: None Drug Abuse: None Family History: Reviewed & Not Pertinent, Other - Lymphoma, breast cancer and hepatic cirrhosis Patient has suicidal ideation: No Patient has homicidal ideation: No Pulmonary Medical History: Reports: Hx Asthma, Hx COPD Renal/ Medical History: Denies: Hx Peritoneal Dialysis Psychiatric Medical History: Denies: Hx Depression Past Surgical History: Reports: Hx Cholecystectomy Review of Systems - Review of Systems Cardiovascular: denies: Chest pain, Palpitations Respiratory: Cough. denies: Short of breath Gastrointestinal: Abdominal pain, Diarrhea, Nausea, Vomiting Genitourinary: No symptoms reported Male Genitourinary: No symptoms reported -: Yes All other systems reviewed and negative Physical Exam - Vital signs Vitals: Temp Pulse Resp BP Pulse Ox 98.4 F 116 H 18 107/73 97 11/19/19 11:59 11/19/19 11:59 11/19/19 11:59 11/19/19 11:59 11/19/19 11:59 - General General appearance: Appears well, Alert In distress: None - HEENT Mucous membranes: Normal, Moist - Respiratory Respiratory status: No respiratory distress Chest status: Nontender Breath sounds: Normal Chest palpation: Normal - Cardiovascular Rhythm: Regular Heart sounds: Normal auscultation - Abdominal Inspection: Normal Distension: No distension Bowel sounds: Normal Tenderness: Tender - Diffuse tenderness to deep palpation Organomegaly: No organomegaly - Back Back: No: CVA tenderness - Extremities General upper extremity: Normal inspection, Nontender, Normal color, Normal ROM, Normal temperature General lower extremity: Normal inspection, Nontender, Normal color, Normal ROM, Normal temperature, Normal weight bearing. No: Aroldo's sign - Neurological Neuro grossly intact: Yes Cognition: Normal Orientation: AAOx4 [place] Coma Scale Eye Opening: Spontaneous [place] Coma Scale Verbal: Oriented [place] Coma Scale Motor: Obeys Commands [place] Coma Scale Total: 15 Speech: Normal - Psychological Associated symptoms: Normal affect, Normal mood - Skin Skin Temperature: Warm Skin Moisture: Dry Skin Color: Normal Course - Re-evaluation Re-evalutation: 11/19/19 14:55 Reevaluation at this time. Patient resting comfortably in the room has received about 600 cc of normal saline. He is in no acute distress. Complaining of no pain. He has a benign abdominal exam on repeat examination. He states he is able to give us a urine sample at this time on request however he reports that he has been unable to have any bowel movements during his stay here. 11/19/19 15:02 Patient request Pepsi and cup of ice. He is tolerating oral intake well. 11/19/19 16:58 Reevaluation at this time, patient resting comfortably in the room. His stool sample at this time were negative. Pending stool culture. Suspect a viral process. Patient will be sent home with Bessie. Encouraged rest and hydration. He was given a work note for 3 days to recover. Counseled him at length regarding the importance of outpatient follow-up and advised that he return here or any ER immediately with any new, persistent or worsening symptoms. He verbalized understood and agreed. - Vital Signs Vital signs: Temp Pulse Resp BP Pulse Ox 98.4 F 80 18 107/73 97 11/19/19 11:59 11/19/19 15:39 11/19/19 11:59 11/19/19 11:59 02/16/20 11:59 - Laboratory Result Diagrams: 11/19/19 12:37 11/19/19 12:37 Laboratory results interpreted by me: 11/19/19 11/19/19 11/19/19 12:37 12:37 15:05 WBC 15.0 H RDW 14.4 H Lymph % (Auto) 5.8 L Absolute Neuts (auto) 13.5 H Seg Neutrophils % 89.9 H Glucose 115 H Total Bilirubin 5.1 H Urine Urobilinogen 4.0 H Discharge - Discharge Clinical Impression: Cough Nausea and vomiting Qualifiers: Vomiting type: unspecified Vomiting Intractability: unspecified Qualified Code(s): R11.2 - Nausea with vomiting, unspecified Diarrhea Qualifiers: Diarrhea type: unspecified type Qualified Code(s): R19.7 - Diarrhea, unspecified Condition: Stable Disposition: HOME, SELF-CARE Instructions: Diarrhea, Nonspecific ([facility]) Additional Instructions: Follow-up with your regular doctor in 2 to 3 days for reevaluation. Return here or any ER immediately with any new, persistent or worsening symptoms. Prescriptions: Benzonatate [Tessalon Perles 100 mg Capsule] 200 mg PO Q8HP PRN #40 capsule PRN Reason: Ondansetron [Zofran Odt 4 mg Tablet] 1 tab PO Q8 #20 tab.rapdis Forms: Return to Work
--- NOTE | 2019-11-19 14:05 | RADIOLOGY REPORT (SQ) ---
EXAM DESCRIPTION: CHEST 2 VIEWS COMPLETED DATE/TIME: 11/19/2019 1:53 pm REASON FOR STUDY: productive cough COMPARISON: 10/28/2018. EXAM PARAMETERS: NUMBER OF VIEWS: two views TECHNIQUE: Digital Frontal and Lateral radiographic views of the chest acquired. RADIATION DOSE: NA LIMITATIONS: none FINDINGS: LUNGS AND PLEURA: No opacities, masses or pneumothorax. No pleural effusion. MEDIASTINUM AND HILAR STRUCTURES: No masses or contour abnormalities. HEART AND VASCULAR STRUCTURES: Heart normal size. No evidence for failure. BONES: No acute findings. HARDWARE: None in the chest. OTHER: No other significant finding. IMPRESSION: NO ACUTE RADIOGRAPHIC FINDING IN THE CHEST. TECHNICAL DOCUMENTATION: JOB ID: [id number] 2011 [employer]- All Rights Reserved Reading location - IP/workstation name: [email or web address]
[2019-11-19 15:28] LABS: APPEARANCE,URINE CLEAR; BILIRUBIN,URINE NEGATIVE (NEGATIVE); COLOR,URINE AMBER; GLUCOSE, URINE NEGATIVE (NEGATIVE); KETONES,URINE NEGATIVE (NEGATIVE); PROTEIN,URINE NEGATIVE (NEGATIVE); URINE SPECIFIC GRAVITY 1.024
[2019-11-19 17:15] VITALS: BP 101/66
== END 2019-11-19 17:21 | disposition home or self-care (01) ==
LOC: ER 11:48
DX: R05 Cough (principal); R19.7 Diarrhea, unspecified; R11.2 Nausea with vomiting, unspecified; R51 Headache; R10.84 Generalized abdominal pain; F17.200 Nicotine dependence, unspecified, uncomplicated; J44.9 Chronic obstructive pulmonary disease, unspecified
CPT/HCPCS: 36415; 87045; 89055; 87205; 83690; 85025; 82272; 80053; 81001; 87804; 71046; S0119; J7030; 96361; 96374; 99284